=== PATIENT | male | born 1940 | race Caucasian/White ===

== ENCOUNTER 2017-03-29 12:12 | Emergency (ER) | payer MEDICARE ==
[~2017-03-29 12:12] MED LIST: ASPI-99 PO; ATOR40TA49 PO; CLIN1CAP5 PO; COUM5TAB PO; DOCU1CAP39 PO; FERR140T PO; FOLI1 PO; PRED5TAB PO; PROT40TA PO
[2017-03-29 12:20] VITALS: BP 132/65; PULSE 73; RESP 20; TEMP 97.6; O2SAT 97
--- NOTE | 2017-03-29 12:36 | PD ---
HPI Chief Complaint: Fall Time Seen by Provider: 12:31 Travel History International Travel<30 days: No Contact w/Intl Traveler<30days: No Traveled to known affect area: No History of Present Illness HPI 76-year-old male here with complaint of right knee swelling. Patient had a mechanical fall, slipping on an oil slick and a parking lot yesterday. He fell forward, landed on his hands and knees. He did not hit his head, denies LOC, neck or back pain. He notes pain to the bilateral knees, right greater than left. Is concerned because he is on Coumadin and this morning the knee was more swollen prompting his visit. He has been able to ambulate without any difficulty. He notes minimal to no pain. PFSH Past Medical History Hx Anticoagulant Therapy: Yes Asthma: No Atrial Fibrillation: Yes Blood Disorders: No Anxiety: No Depression: No Heart Rhythm Problems: No Cancer: No Cardiovascular Problems: Yes High Cholesterol: Yes Chemotherapy: No Chest Pain: No Congestive Heart Failure: No COPD: No Cerebrovascular Accident: No Diabetes: No Diminished Hearing: Yes (LEFT, HEARING AID RIGHT) Endocrine: No Genitourinary: No Immune Disorder: No Musculoskeletal: No Neurologic: No Psychiatric: No Reproductive: No Respiratory: No Immunizations Current: Yes (RECENT TETANUS SHOT) Pneumonia: Yes Radiation Therapy: No Sleep Apnea: Yes Thyroid Disease: No PNEUMOCCOCAL Vaccine (Year): 2010 Past Surgical History Abdominal Surgery: Yes (LEFT INGUINAL HERNIA REPAIR) Appendectomy: No Cholecystectomy: No Coronary Artery Bypass Graft: Yes Hysterectomy: No Other Surgery: Yes (CYST RIGHT NECK, PAROTID GLAND) Social History Alcohol Use: No Tobacco Use: No Substance Use: No Allergies-Medications (Allergen,Severity, Reaction): Coded Allergies: Ativan (Verified Allergy, Severe, 03/29/17) Bactrim (Verified Allergy, Severe, 03/29/17) Reported Meds & Prescriptions Reported Meds & Active Scripts Active Clindamycin Hcl (Clindamycin HCl) 150 Mg Cap 2 Tab PO Q8H 10 Days Reported Ferrous Sulfate 140 Mg Tab 65 Mg PO DAILY Coumadin 5 mg (Warfarin Sodium) Warfarin Sodium 5 mg Tab 0.5 Tab PO DIRECTED Sun, Tu, , Saturday Colace 100 Mg Cap (Docusate Sodium) 100 Mg Cap 300 Mg PO HS Aspirin 81 Mg Tab 81 Mg PO DAILY Protonix (Pantoprazole Sodium) 40 Mg Tab 40 Mg PO DAILY Prednisone 5 Mg Tab 0.5 Mg PO DAILY Folate 1 Mg Tab (Folic Acid) 1 Mg Tab 1 Mg PO DAILY Lipitor 40 Mg Tab (Atorvastatin Calcium) 40 Mg Tab 40 Mg PO HS Review of Systems Except as stated in HPI: all other systems reviewed are Neg Physical Exam Narrative GENERAL: Well-appearing male in no acute distress SKIN: Focused skin assessment warm/dry. HEAD: Normocephalic. EYES: No scleral icterus. No injection or drainage. ENT: Mucous membranes pink and moist. NECK: Supple CARDIOVASCULAR: Regular rate and rhythm. RESPIRATORY: No accessory muscle use. GASTROINTESTINAL: Obese MUSCULOSKELETAL: Bilateral upper extremities unremarkable. Left knee with small abrasion. Right knee with 4 x 3 cm abrasion with surrounding contusion and early ecchymosis. No tenderness to palpation of the joint line. Patient is able to flex well beyond 90 and fully extend the knee without any difficulty. NEUROLOGICAL: Awake and alert. Normal Gait. Normal speech. PSYCHIATRIC: Appropriate mood and affect; insight and judgment normal. Data Data Last Documented VS Vital Signs Date Time Temp Pulse Resp B/P Pulse Ox O2 Delivery O2 Flow Rate FiO2 03/29/17 12:20 97.6 73 20 132/65 97 MDM Medical Decision Making Medical Screen Exam Complete: Yes Emergency Medical Condition: Yes Medical Record Reviewed: Yes Differential Diagnosis 76-year-old male here with right knee pain after mechanical fall yesterday. Differential includes contusion, ligamentous injury or internal derangement, fracture, abrasion Narrative Course Patient is able to ablate without any difficulty and does not warrant imaging of the knee. Exam is consistent with abrasion with surrounding contusion no doubt made worse by his underlying Coumadin use. Patient was reassured, conservative management and discharged home. Diagnosis Primary Impression: Contusion of right knee Qualified Code: S80.01XA - Contusion of right knee, initial encounter Additional Impressions: Abrasion, right knee, initial encounter Fall Qualified Code: W19.XXXA - Fall, initial encounter Referrals: Primary Care Physician as needed Additional Instructions: Ice the knee 2-3 times per day. Med/Other Pt SpecificInfo: No Change to Meds Disposition: 01 DISCHARGE HOME Condition: Stable Belia Denise MD Mar 29, 2017 12:36
[2017-03-29] MEDS ORDERED: WARF-23 PO (12:51)
[2017-03-29] MEDS ORDERED: [UNRECOGNIZED DRUG - OTHER] (12:51)
[2017-03-29] MEDS ORDERED: PROT40TA PO (12:51)
[2017-03-29] MEDS ORDERED: ASPI-110 PO (12:51)
[2017-03-29] MEDS ORDERED: LIPI20TA PO (12:51)
[2017-03-29] MEDS ORDERED: SLOW47.5 PO (12:51)
[2017-03-29] MEDS ORDERED: LEVO25TA4 PO (12:51)
[2017-03-29] MEDS ORDERED: FOLI800T PO (12:51)
== END 2017-03-29 13:07 | disposition home or self-care (01) ==
LOC: PHED 12:12
DX: S80.01XA Contusion of right knee, initial encounter (principal); S80.211A Abrasion, right knee, initial encounter; M25.562 Pain in left knee; E78.00 Pure hypercholesterolemia, unspecified; H91.90 Unspecified hearing loss, unspecified ear; G47.30 Sleep apnea, unspecified; W01.0XXA Fall on same level from slipping, tripping and stumbling without subsequent striking against object, initial encounter; Y92.481 Parking lot as the place of occurrence of the external cause; Z79.01 Long term (current) use of anticoagulants; Z86.79 Personal history of other diseases of the circulatory system; Z87.01 Personal history of pneumonia (recurrent)
CPT/HCPCS: 99282

== ENCOUNTER 2017-05-21 20:28 | Emergency (ER) | payer MEDICARE ==
[~2017-05-21] VITALS: Ht 182.9 cm; Wt 114.4 kg
[~2017-05-21 20:28] MED LIST changes: +ASPI-110 PO; -ASPI-99 PO; -ATOR40TA49 PO; -CLIN1CAP5 PO; -COUM5TAB PO; -DOCU1CAP39 PO; -FERR140T PO; -FOLI1 PO; +FOLI800T PO; +LEVO25TA4 PO; +LIPI20TA PO; -PRED5TAB PO; +SLOW47.5 PO; +WARF-23 PO; +[UNRECOGNIZED DRUG - OTHER]
[2017-05-21 20:33] VITALS: BP 134/70; PULSE 91; RESP 20; TEMP 98.4; O2SAT 94
[2017-05-21] MEDS ORDERED: MUPI2OIN TOPICAL (21:00)
--- NOTE | 2017-05-21 21:08 | PD ---
HPI Chief Complaint: Skin Problem Time Seen by Provider: 20:56 Travel History International Travel<30 days: No Contact w/Intl Traveler<30days: No Traveled to known affect area: No History of Present Illness HPI 76-year-old male presents to the emergency room for evaluation of a painful blister to his right knee that started 2 days ago. Patient states he fell on concrete about one month ago and had a small abrasion that bled a lot. States it seemed to be improving and clearing up until blister formed. He reports mild tenderness to palpation. Patient was concerned because the redness around the blister seemed to be spreading. Denies fever, chills, nausea, and vomiting. PFSH Past Medical History Hx Anticoagulant Therapy: Yes (COUMADIN ) Asthma: No Atrial Fibrillation: Yes Blood Disorders: No Anxiety: No Depression: No Heart Rhythm Problems: No Cancer: No Cardiovascular Problems: Yes High Cholesterol: Yes Chemotherapy: No Chest Pain: No Congestive Heart Failure: No COPD: No Cerebrovascular Accident: No Diabetes: No Diminished Hearing: Yes (LEFT, HEARING AID RIGHT) Endocrine: No Genitourinary: No Immune Disorder: No Musculoskeletal: No Neurologic: No Psychiatric: No Reproductive: No Respiratory: No Immunizations Current: Yes (RECENT TETANUS SHOT) Pneumonia: Yes Radiation Therapy: No Sleep Apnea: Yes Thyroid Disease: No Tetanus Vaccination: > 5 Years Influenza Vaccination: No PNEUMOCCOCAL Vaccine (Year): 2010 Past Surgical History Abdominal Aneurysm Repair: Yes Abdominal Surgery: Yes (LEFT INGUINAL HERNIA REPAIR) Appendectomy: No Cholecystectomy: No Coronary Artery Bypass Graft: Yes Hysterectomy: No Valve Replacement: Yes Other Surgery: Yes (CYST RIGHT NECK, PAROTID GLAND) Social History Alcohol Use: No Tobacco Use: No Substance Use: No Allergies-Medications (Allergen,Severity, Reaction): Coded Allergies: lorazepam (Unverified Allergy, Severe, 05/21/17) sulfamethoxazole (Unverified Allergy, Severe, 05/21/17) trimethoprim (Unverified Allergy, Severe, 05/21/17) Reported Meds & Prescriptions Reported Meds & Active Scripts Active Reported [Eudra] Iron Slow Release (Ferrous Sulfate Dried) 45 Mg Tab 65 Mg PO DAILY Aspirin 81 (Aspirin) 81 Mg Tabdr 81 Mg PO DAILY Protonix (Pantoprazole Sodium) 40 Mg Tab 40 Mg PO DAILY Levothyroxine (Levothyroxine Sodium) 25 Mcg Tab 25 Mcg PO DAILY Folic Acid 800 Mcg Tab 800 Mcg PO DAILY Lipitor (Atorvastatin Calcium) 20 Mg Tab 20 Mg PO HS Warfarin 5 Mg Tab 5 Mg PO DIRECTED Review of Systems Except as stated in HPI: all other systems reviewed are Neg Physical Exam Narrative GENERAL: Well-nourished, well-developed male in no acute distress. Afebrile. Ambulatory. SKIN: Focused skin assessment warm/dry. There is a 2 cm yellow, fluid-filled blister to the right anterior knee with mild surrounding erythema. No lymphangitis. Blister is intact. HEAD: Normocephalic. EYES: No scleral icterus. No injection or drainage. NECK: Supple, trachea midline. No JVD or lymphadenopathy. CARDIOVASCULAR: Regular rate and rhythm without murmurs, gallops, or rubs. RESPIRATORY: Breath sounds equal bilaterally. No accessory muscle use. MUSCULOSKELETAL: No cyanosis, or edema. Full range of motion of the right knee. Data Data Last Documented VS Vital Signs Date Time Temp Pulse Resp B/P (MAP) Pulse Ox O2 Delivery O2 Flow Rate FiO2 05/21/17 20:33 98.4 91 20 134/70 (91) 94 MDM Medical Decision Making Medical Screen Exam Complete: Yes Emergency Medical Condition: Yes Medical Record Reviewed: Yes Differential Diagnosis Impetigo, staph aureus, blister, drug reaction, insect bite Narrative Course 76-year-old male presents to the emergency room for evaluation of a skin lesion to his right knee. Patient first noticed it 2 days ago. States he had an abrasion there one month ago after falling which seemed to be improving until a blister formed. Reports mild pain. He is concerned for infection because of the surrounding redness. No systemic signs of infection. Physical exam is reassuring. There is a 2 cm yellow fluid filled blister on the right anterior knee. No lymphangitis. This is bullous impetigo. Patient discharged with prescription for the mupirocin and told to follow up with a primary care physician or return for worsening symptoms. He understands and agrees to plan. Diagnosis Primary Impression: Bullous impetigo Referrals: Primary Care Physician Additional Instructions: Rest and drink plenty of fluids. Apply mupirocin as directed for 2 weeks. Apply ointment to new lesions if they develop nearby. Follow-up with a primary care physician. Return to the emergency room for worsening symptoms. Med/Other Pt SpecificInfo: Prescription(s) given Scripts Mupirocin Topical (Mupirocin Topical) 2 % Oint 1 APPLIC TOPICAL BID for Mgmt Bacterial Infection, #22 GM 0 Refills Prov: Kaleigh De La Garza MD 05/21/17 Disposition: 01 DISCHARGE HOME Condition: Stable Perri Lamb May 21, 2017 21:08
== END 2017-05-21 21:21 | disposition home or self-care (01) ==
LOC: PHEFT 20:28
DX: L01.03 Bullous impetigo (principal); W18.30XA Fall on same level, unspecified, initial encounter; Z79.01 Long term (current) use of anticoagulants
CPT/HCPCS: 99283

== ENCOUNTER 2018-10-24 08:00 | Inpatient (IN) ==
[2018-10-28] MEDS ORDERED: Metoprolol Tartrate 25 MG Tablet PO ONE (05:43)
[2018-10-28] MEDS ORDERED: Chlorhexidine Gluconate 2% 1 Pack (2 Cloths) TOPICAL ONE (05:43)
[2018-10-28] MEDS ORDERED: Sodium Chlor 0.9% Inj 500 ML IV.SIG SCH (06:00)
[2018-10-28] MEDS ORDERED: Protamine Sulfate Inj 50 MG/5 ML Vial ONE (06:30)
[2018-10-28] MEDS ORDERED: Bupivacaine PF 0.5% Inj 10 ML Vial ONE (06:30)
[2018-10-28] MEDS ORDERED: Heparin 10,000 UNITS/10 ML Vial (for IV use) ONE (06:30)
[2018-10-28] MEDS ORDERED: Heparin/NS PF Inj 500 ML ONE ×2 (06:31→11:19)
[2018-10-28] MEDS ORDERED: Thrombin Topical Soln 20,000 UNIT Vial TOPICAL ONE (06:31)
[2018-10-28] MEDS ORDERED: Dexmedetomidine Inj 200 MCG/2 ML Vial ONE (06:41)
[2018-10-28] MEDS ORDERED: Naloxone Inj 0.4 MG/ML Vial ONE ×3 (06:48→06:51)
[2018-10-28] MEDS ORDERED: Famotidine PF Inj 20 MG/2 ML Vial ONE (06:49)
--- NOTE | 2018-10-28 07:00 | P.PNVS ---
- Pre-operative Note Planned Procedure: LEFT carotid-subclavian bypass TEVAR Interval History: Pt has been doing well and has no chest pain, no SOB. No other changes that would preclude OR. Labs: pending. INR 1.3 yesterday Blood: T&S Imaging: CTA reviewed. Proximal and distal I endoleak after TEVAR. Orders: NPO Ancef 2g IV OCTOR Post-operative Destination: CVICU Operative site marked: Yes Consent: Informed consent has been obtained from Wes León. I have explained the procedure in detail and discussed the risks, benefits, and potential complications. All questions have been answered. Patient Contact Information: : [phone]
[2018-10-28 07:14] LABS: INR 1.2 Ratio; Prothrombin Time 11.8 sec (9.8-11.6)
[2018-10-28] MEDS ORDERED: fentaNYL Citrate Inj 100 MCG/2 ML Ampul ONE ×2 (07:30→13:34)
[2018-10-28] MEDS ORDERED: MethylPREDNISolone Sod Succinate Inj 125 MG/2 ML Vial ONE (07:49)
--- NOTE | 2018-10-28 08:14 | P.RAD ---
Post Procedure Progress Note - Pre Procedure Diagnosis (1) Thoracic aortic aneurysm - Post Procedure Diagnosis (1) Thoracic aortic aneurysm - Procedure Information Procedure Date: 10/28/18 Supervising Radiologist: Ramesh Vegas Jr, MD Proceduralist/Assist: Fito Haro Estimated blood loss (mL): 0 Anesthesia: Conscious Sedation - Plan of Activity Patient to Unit: PACU Patient Condition: Good See PACS Report for procedural detail/treatment. Spinal Procedure Lumbar Drain L4-L5 Fluid Description: Clear Findings: Lumbar drain placed. Clear CSF Plan: Vascular surgery to monitor drain.
[2018-10-28] MEDS ORDERED: Neostigmine Inj 5 MG/5 ML Syringe IV.PUSH ONE (08:20)
[2018-10-28] MEDS ORDERED: Lidocaine PF 1% Inj 5 ML Syringe OTHER ONE (08:20)
[2018-10-28] MEDS ORDERED: Sodium Chlor 0.9% Inj 500 ML IV.CONT ONE ×2 (08:20)
[2018-10-28] MEDS ORDERED: Glycopyrrolate Inj 1 MG/5 ML Syringe IV.PUSH ONE (08:20)
[2018-10-28] MEDS ORDERED: Phenylephrine/NS 1000 MCG/10ML Syringe IV.PUSH ONE (08:20)
[2018-10-28] MEDS ORDERED: Normosol-R pH 7.4 Inj 4,000 ML IV.CONT ONE (08:20)
--- NOTE | 2018-10-28 09:28 | IR ---
EXAM DATE: 10/28/2018 8:33 AM EST AGE/SEX: 77 years / Male INDICATIONS: Patient presents with endoleak in need of pre operative lumbar drain placement prior to thoracic stent repair. CLINICAL DATA: This is the patient's initial encounter. Patient reports that signs and symptoms have been present for 4 - 6 days and indicates a pain score of 0/10. Location: , Laterality: MEDICAL/SURGICAL HISTORY: . A fib, Dyslipidemia, History of right arm DVT. . AAA repair, CABG, Hernia repair, Mitral valve replaced. COMPARISON: No prior exams available for comparison. FLUORO TIME (min): 2:17 IMAGE SERIES: 4 RADIATION DOSE: 252 mGy CAK ACCESS SITE: L4-5 SEDATION TIME (min): 20 LUMBAR PUNCTURE TIME: 07:58 hours MEDICATION(S): 1 mg midazolam (Versed) IV 50 mcg fentanyl (Sublimaze) IV DEVICE(S): 14 Thai lumbar drain catheter catheter tip placement T8/T9 . . PROCEDURE: 1. Fluoroscopically guided lumbar drain placement. 2. Conscious sedation with continuous EKG and oximetry monitoring. The risks, benefits and alternatives to the procedure were explained and verbal and written consent w as obtained. The site was prepped in sterile fashion. Full sterile technique was used, including ca p, mask, sterile gloves and gown and a large sterile sheet. Hand hygiene and 2% chlorhexidine and/or betadine/alcohol prep was utilized per protocol for cutaneous antisepsis. The skin and subcutaneous tissues were infiltrated with local anesthetic solution. With fluoroscopic guidance the lumbar thecal sac was punctured with a 14 gauge Touhy needle and a lum bar drain was placed with its tip at the level as described above and the catheter was sutured in mat ce. CSF was identified returning from the catheter at the termination of the procedure. Conscious sedation was performed with the prescribed dosages and duration as above in the presence of an independent trained radiology nurse to assist in the monitoring of the patient. EKG and oximetry remained stable throughout the procedure. The patient tolerated the procedure well and there were n o complications. The patient was sent to post anesthesia recovery in stable condition. CONCLUSION: 1. Uncomplicated lumbar drain placement as above. Clear CSF noted. Electronically signed by: Ramesh Vegas MD Board Certified Radiologist 10/28/2018 9:26 AM EST
[2018-10-28] MEDS ORDERED: Iohexol 300 MG/ML 50 ML Vial (for Rad Diag) IVCONTRAST ONE (12:40)
--- NOTE | 2018-10-28 12:59 | P.OP ---
- Preoperative Diagnosis (1) Thoracic aortic aneurysm - Postoperative Diagnosis (1) Thoracic aortic aneurysm Date of procedure: 10/28/18 Procedure: 1. LEFT carotid-subclavian bypass (8mm Dacron) 2. TEVAR including L SCA coverage 3. Aptus lo of distal endograft (active fixation) 4. R NREMT perclose (22F) 5. L NREMT Angioseal Implants: 1. Valiant 46mm x 223 2. Valiant [id number] 3. Valiant [id number] 4. 8mm Dacron in L neck 5. Aptus lo x 6 distal aorta Anesthesia: GETA Surgeon: Pato Ross MD Final Finisher: Pato Bo Estimated blood loss (mL): 150 IV fluids (mL): 2,600 Urine output (mL): 500 Pathology: none sent Operation and Findings: successful relining from L CCA to celiac 160mL contrast 39 minutes fluoroscopy 5762mGy radiation
[2018-10-28] MEDS ORDERED: Bisacodyl 10 MG Supp RECTAL PRN (13:00)
[2018-10-28] MEDS ORDERED: Morphine Inj 4 MG/ML Vial IV.PUSH PRN (13:00)
[2018-10-28] MEDS ORDERED: DOPamine Inj 800 MG in Sodium Chlor 0.9% Inj 500 ML IV.CONT PRN (13:58)
[2018-10-28] MEDS ORDERED: DOPamine 400 MG/250 ML Premix 400 MG/250 ML BAG IV.CONT ONE (14:01)
--- NOTE | 2018-10-28 14:02 | XR ---
EXAM DATE: 10/28/2018 1:49 PM EST AGE/SEX: 77 years / Male INDICATIONS: Post central line placement and thoracic aneurysm repair. CLINICAL DATA: This is the patient's initial encounter. Patient reports that signs and symptoms have been present for 1 day and indicates a pain score of Nonresponsive. MEDICAL/SURGICAL HISTORY: . thoracic aneurysm . thoracic aneurysm repair COMPARISON: [facility] [place], CHEST 2V PA&LAT, 10/21/2018. . FINDINGS: Single view demonstrates again an aortic stent graft in place. There is mild pulmonary vascular conge stion. Right IJ central line in good position. No postoperative pneumothorax. The heart is enlarged. Overall better aeration left lung base. CONCLUSION: Tortuous aorta status post stent graft placement. Right IJ central venous catheter with its tip overl destin the SVC Electronically signed by: Nahid Rasmussen MD Board Certified Radiologist 10/28/2018 2:01 PM EST
--- NOTE | 2018-10-28 14:05 | P.CONCC ---
History of Present Illness Service: Critical care Consult date: 10/28/18 Requesting Physician: Pato Ross Reason for Consult: s/p TEVAR, bradycardia Primary Care Provider: Art Luna MD Chief Complaint: s/p TEVAR, bradycardia History of Present Illness: 77-year-old male with past medical history significant for atrial fibrillation, dyslipidemia, previous AAA repair, TEVAR 6 years ago, history of stroke, obesity, history of temporal arteritis and polymyalgia who underwent Left carotid-subclavian bypass and TEVAR including L SCA coverage with successful relining from left common carotid artery to celiac. Had previous TEVAR 6 years ago, developed proximal and distal I endoleak. Lumbar drain was placed for spinal cord injury prophylaxis. Post op patient was moved to the CVICU where I evaluated him. He is somnolent from procedural sedation. However wakes up moves all extremities. Currently receiving Carlitos-Synephrine at 40 mcg/min to keep map above 100. Lumbar drain in plac. Patient is also on Narcan infusion for SCI prophylaxis. On my evaluation patient intermittently bradycardic. Underlying rhythm is A. fib. Will change pressors to dopamine to target heart rate >60, map more than 100. Discuss[address] with [address] Ross. Review of Systems All other systems reviewed negative except as stated in HPI PMFSH - History History Provided By: Patient, Family Member - Medical History Medical History: Medical History (Last Reviewed 10/28/18 @ 14:06 by Jamal Hathaway MD) Atrial fibrillation High cholesterol Hx of Clostridium difficile infection Hx of blood clots Hx of varicose veins of lower extremity manager long term care (current) use of anticoagulants Lung nodule Polymyalgia Temporal arteritis Wears glasses Wears hearing aid in right ear - Surgical History Surgical History: Surgical History (Last Reviewed 10/28/18 @ 06:34 by Stacey Ware) History of AAA (abdominal aortic aneurysm) repair History of laser iridotomy Hx of cataract removal with insertion of prosthetic lens Hx of hand surgery Hx of hand surgery Hx of left inguinal hernia repair Hx of mitral valve replacement with cardiopulmonary bypass Hx of removal of neck cyst Hx of thoracic aortic aneurysm repair - Tobacco History Second Hand Smoke Exposure: No Tobacco Use In Past 30 Days: No Smoking Status: Never smoker - Alcohol History How Often Do You Have a Drink Containing Alcohol: Monthly or less - Substance Use History Substance History: No History of Abuse Medications and Allergies Active Medications: Active Medications Al Hydroxide/Mg Hydroxide (Milk Of Magnesia Liq) 30 ml PO Q12H PRN PRN Reason: Mild Constipation Aspirin (Aspirin Chew) 81 mg PO DAILY [facility] Atorvastatin Calcium (Lipitor) 20 mg PO QPM [facility] Bisacodyl (Dulcolax Supp) 10 mg RECTAL DAILY PRN PRN Reason: SEVERE CONSITIPATION Famotidine (Pepcid) 20 mg PO BID [facility] Ferrous Sulfate (Ferosul) 325 mg PO DAILY [facility] Folic Acid (Folic Acid) 1 mg PO DAILY [facility] Heparin Sodium (Porcine) (Heparin Inj) 5,000 units SQ Q8H [facility] Hydromorphone HCl (Dilaudid) 2 mg PO Q4H PRN PRN Reason: PAIN SCALE 6 TO 10 Lactated Ringer's (Lr 1000 Ml Inj) 1,000 mls @ 30 mls/hr IV.SIG .Q24H [facility] Stop: 10/29/18 05:44 Last Admin: 10/28/18 06:30 Dose: 30 mls/hr Sodium Chloride (Ns Inj) 500 mls @ 30 mls/hr IV.SIG .Q10H [facility] Lactated Ringer's (Lr 1000 Ml Inj) 1,000 mls @ 63 mls/hr IV.CONT .[id number] [facility] Naloxone HCl 4 mg/ Dextrose 250 mls @ 12.5 mls/hr IV.CONT TITRATE PRN; Protocol PRN Reason: Ordered RASS Phenylephrine HCl 40 mg/ (Dextrose) 500 mls @ 18.75 mls/hr IV.CONT TITRATE PRN ; Protocol PRN Reason: Per Protocol Dopamine HCl 800 mg/ Sodium (Chloride) 520 mls @ 13.85 mls/hr IV.CONT TITRATE PRN; Protocol PRN Reason: See Protocol Lactulose (Lactulose Liq) 30 ml PO DAILY PRN PRN Reason: SEVERE CONSITIPATION Levothyroxine Sodium (Synthroid) 25 mcg PO DAILY@0600 [facility] Midazolam HCl (Versed Inj) 1 mg IV.PUSH ONCE ONE Stop: 10/28/18 08:17 Morphine Sulfate (Morphine Inj) 2 mg IV.PUSH Q1H PRN PRN Reason: BREAKTHROUGH PAIN Multivitamins (Theragran) 1 tab PO DAILY [facility] Oxycodone HCl (Roxicodone) 5 mg PO Q4H PRN PRN Reason: PAIN SCALE 1 TO 5 Senna/Docusate Sodium (Annika-Colace) 1 tab PO BID [facility] Sennosides (Senokot) 17.2 mg PO Q12H PRN PRN Reason: Moderate Constipation Sennosides (Senokot) 17.2 mg PO HS [facility] Terbutaline Sulfate (Brethine Inj) 1 mg SQ UNSCH PRN PRN Reason: For Extravasation Terbutaline Sulfate (Brethine Inj) 1 mg SQ ONCE PRN PRN Reason: Extravasation Allergies Allergy/AdvReac Type Severity Reaction Status Date / Time lorazepam Allergy Severe Agitation, Verified 10/28/18 06:27 WILD, GOOFY sulfamethoxazole Allergy Severe Nausea/Vomiting, Verified 10/28/18 06:27 DIORIENTATION trimethoprim Allergy Severe Nausea/Vomiting, Verified 10/28/18 06:27 DISORIENTATION Home Medications Medication Instructions Recorded Confirmed Type aspirin [Adult Low Dose Aspirin] 81 mg PO DAILY 10/21/18 10/28/18 History atorvastatin 20 mg PO QPM 10/21/18 10/28/18 History ferrous sulfate 324 mg PO DAILY 10/21/18 10/28/18 History folic acid 0.8 mg PO DAILY 10/21/18 10/28/18 History levothyroxine 25 mcg PO DAILY 10/21/18 10/28/18 History whxblztk-hmd-RZ-lycopen-lutein 1 tab PO DAILY 10/21/18 10/28/18 History [Centrum Silver Ultra Men's] pantoprazole 40 mg PO DAILY 10/21/18 10/28/18 History sennosides [senna] 2 tab PO HS 10/21/18 10/28/18 History warfarin [Coumadin] 5 mg PO DAILY 10/21/18 10/28/18 History warfarin [Coumadin] 7.5 mg PO DAILY 10/21/18 10/28/18 History Physical Exam Vital signs: Vital Signs 10/28/18 06:36 Temperature 98.0 F Pulse Rate 68 Respiratory Rate 18 Blood Pressure 142/76 H Pulse Oximetry 94 L Intake & Output 10/27/18 10/28/18 10/28/18 18:59 06:59 18:59 Intake Total 2600 / 2600 Output Total 650 / 650 Balance 1950 / 1950 Weight 118.4 kg Intake: Anesthesia Amount 2600 / 2600 Output: Estimated Blood Loss 150 / 150 Urine Amount (Catheter) 500 / 500 Indwelling Temp Sensing 500 / 500 Catheter Other: Weight On Admission 118.4 kg Narrative: GENERAL: This is a well-nourished, well-developed patient, somnolent from anesthesia SKIN: No rashes, ecchymoses or lesions. Cool and dry. HEAD: Atraumatic. Normocephalic. EYES: Pupils equal round and reactive. No scleral icterus. NECK: Trachea midline. Right IJ central line in place. Left lower neck neck incision CDI, Dermabond in place CARDIOVASCULAR: Bradycardic rate and rhythm without murmurs, gallops, or rubs. Underlying atrial fibrillation with slow ventricular rate RESPIRATORY: Clear to auscultation. No wheezes or crackles GASTROINTESTINAL: Abdomen soft, non-tender, nondistended. No guarding. MUSCULOSKELETAL: Extremities without clubbing, cyanosis, or edema. No calf tenderness. Peripheral pulses are palpable. No groin hematoma at the puncture sites BACK: Lumbar drain in place with clear CSF NEUROLOGICAL: Under residual sedation. Receiving Narcan infusion for spinal cord injury prophylaxis. Lumbar drain in place. Able to move extremities follows commands - Urinary Catheter Management Indwelling Temp Sensing Catheter Cath placed during this visit: yes Reason for continuing: Hourly intake/output Insertion date: 10/28/18 Insertion time: 08:45 Septic Shock Reassessment Septic shock perfusion: reassessment completed Assessment and Plan - Assessment and Plan Plan: ASSESSMENT TEVAR and Left carotid-subclavian bypass Previous TEVAR developed proximal and distal endoleak SCI prophylaxis History of AAA repair History of CVA in the past History of polymyalgia rheumatica Chronic atrial fibrillation Dyslipidemia Obesity PLAN: NEURO: -Close neuro monitoring no focal deficits at this time -Lumbar drain placed for spinal cord injury prophylaxis, maintain map more than 100 for 24 hours -Not monitoring DELIVERY ARCHITECT perfusion pressures -Narcan infusion for spinal cord injury prophylaxis -Fentanyl for pain control RESP: -DuoNeb every 2 hours as needed CV: -Maintenance LR per vascular surgery -Chronic atrial fibrillation with intermittent bradycardia -Currently on Carlitos-Synephrine transition to dopamine to keep map above 100 and heart rate more than 60 -Check troponin lactic acid to guide resuscitation -Resume aspirin in 24-hour, continue Lipitor GI: -Diet per Dr. Ross : -Monitor renal function closely. Ordonez catheter for strict intake output ID: -Perioperative antibiotics per Dr. Ross HEME: -Monitor CBC, coags ENDO: -Electrolyte replacement per protocol PROPH: -SQ Heparin/famotidine LINES: -Utilize peripheral IVs, central line art line in place CC time 38 min Code Status: Full Discussed Condition With: Dr. Ross
[2018-10-28] MEDS ORDERED: Phenylephrine Inj 40 MG in Dextrose 5% in Water Inj 496 ML IV.CONT PRN ×2 (14:30)
[2018-10-28 14:39] LABS: Hematocrit 31.6 % (39.0-51.0); Hemoglobin 10.2 gm/dL (13.0-17.0); Mean Corpuscular HGB Conc 32.3 % (32.0-36.0); Mean Corpuscular Volume 80.7 fL (80.0-100.0); Mean Platelet Volume 7.2 fL (7.0-11.0); Platelet Count 168 th/mm3 (150-450); Red Blood Count 3.92 mil/mm3 (4.50-5.90); Red Cell Distribution Width 15.9 % (11.6-17.2); White Blood Count 8.2 th/mm3 (4.0-11.0)
[2018-10-28] MEDS ORDERED: fentaNYL Citrate Inj 100 MCG/2 ML Ampul IV.PUSH PRN (14:47)
[2018-10-28 14:48] LABS: Alanine Aminotransferase 32 U/L (12-78); Albumin 3.1 g/dL (3.4-5.0); Anion Gap 8 meq/L (5-15); Aspartate Aminotransferase 21 U/L (15-37); Blood Urea Nitrogen 16 mg/dL (7-18); Calcium 8.1 mg/dL (8.5-10.1); Carbon Dioxide 25.1 meq/L (21.0-32.0); Chloride 108 meq/L (98-107); Glomerular Filtration Rate 86 mL/min (>89); Glucose,Random 135 mg/dL (74-106); Potassium 3.8 meq/L (3.5-5.1); Sodium 141 meq/L (136-145)
[2018-10-28 14:50] LABS: Alkaline Phosphatase 116 U/L (45-117); Total Protein 7.5 g/dL (6.4-8.2)
[2018-10-28] MEDS: Famotidine 20 MG Tablet PO SCH (21:36)
[2018-10-28] MEDS: Senna/Docusate Sodium 8.6/50 MG Tablet PO SCH (21:37)
--- NOTE | 2018-10-28 23:48 | MP ---
cc: Pato Ross MD DATE OF OPERATION: 10/28/2018 PREOPERATIVE DIAGNOSIS: Thoracic aneurysm. POSTOPERATIVE DIAGNOSIS: Thoracic aneurysm. PROCEDURE PERFORMED: 1. Left carotid subclavian bypass with 8 mm Dacron. 2. Proximal extension of the previously placed TEVAR. 3. Distal extension of the previously placed TEVAR. 4. Aptus fixation device of distal aspect of the TEVAR. 5. Right common femoral artery Perclose (22F). 6. Left common femoral artery Angio-Seal. ATTENDING SURGEON: Pato Ross MD REGIONAL GEODETIC ADVISOR SURGEON: Pato Bo ANESTHESIA: General. INDICATIONS: Mr. León is a 77-year-old gentleman who has a previous thoracic endovascular aortic stent for a thoracic aneurysm. On routine surveillance, he was noted to have a proximal degeneration as well as distal degeneration of the thoracic aorta and he was offered an endovascular mediation. He required a proximal extension as well as a distal extension and because a proximal extension intentionally covered the left subclavian artery, a carotid subclavian bypass was performed preemptively. DESCRIPTION OF PROCEDURE: Informed consent was obtained. The patient was taken to the operating room and placed supine on the operating table. An appropriate timeout was taken to ensure the patient's identity, operative site and planned procedure. The administration of 2 grams of Ancef was initiated prior to the spinal drain insertion, which was done in radiology. Everyone in the room agreed with timeout and we proceeded. He was prepped from his chin to his knees. An incision was made above the left clavicle, carried down through subcutaneous tissue with electrocautery. The platysma was divided with electrocautery. The lateral aspect of the sternocleidomastoid was divided and the scalene fat pad was mobilized. The anterior scalene muscle was identified and transected laterally, thereby exposing the subclavian artery, which was encircled with a vessel loop. The sternocleidomastoid was mobilized and the jugular vein was completely circumferentially mobilized and dissected free, and the common carotid artery was identified and encircled with a vessel loop. A tunnel was then created underneath the jugular for passage of the graft. The neck wound was temporarily packed as we gained access in the groins. Both common femoral arteries were accessed with the 21-gauge micropuncture needle. This was exchanged using Seldinger technique for a micropuncture sheath through which a 0.05 STORQ wire was introduced. The micropuncture sheath was exchanged for a 5-Pakistani sheath on the left and an 8-Pakistani sheath on the right. Prior to placing the 8-Pakistani sheath on the right, two Perclose ProGlide sutures were inserted and tagged but not tied down. These will be used later. The patient was then systemically heparinized and throughout the remainder of the case, the ACT was kept greater than 250. Proximal and distal control of the subclavian artery was obtained with profunda clamps and a longitudinal arteriotomy was made with an 11 blade, extended with Mayur scissors. An 8 mm Dacron was brought up on the field, spatulated and sewn end-to-side with running 5-0 Prolene suture. At the completion, it was flushed and was hemostatic. The clamps were released and a Gordon Soft jaw was placed in the graft. The graft was tunneled underneath the jugular vein with pharmacological augmentation of the blood pressure, proximal and distal control of the common carotid artery was obtained with profunda clamps, and a longitudinal arteriotomy was made with an #11 blade, extended with Merom scissors. The graft was cut to the appropriate length and sewn end-to-side to the common carotid artery with a running 5-0 Prolene suture. At the completion, it was flushed and noted to be hemostatic. The wound was packed temporarily. We then turned our attention towards the TEVAR. Through both groins, the 8-Pakistani on the right and the 5-Pakistani on the left, STORQ wires were advanced to the ascending aorta through the previous T-bar graft. The right hand STORQ wire was exchanged for a Lunderquist using a catheter and over the left hand STORQ wire, a marker flush pigtail catheter was placed into the ascending aorta. The 8-Pakistani sheath on the right was removed and Jos dilator was used to dilate the skin and subcutaneous tracts and arteriotomy up to the main device, which was a Valiant 46 x 200 through a 22-Pakistani sheath, which was introduced through the dilated right common femoral arteriotomy. The device was advanced to the ascending aorta and then withdrawn. The interval angiogram was performed and the device was deployed without difficulty such that the proximal aspect of the fabric was immediately distal to the left common carotid artery. The delivery system was then removed, and an 18-Pakistani Sentrant sheath was introduced and a Reliant balloon was used to balloon the proximal and distal ends of this graft. We then turned our attention towards the distal aspect. The pigtail catheter was backed down to the distal aspect of the graft. An angiogram was obtained. The 18-Pakistani sheath was removed and a 46 x 175 device was then introduced and deployed, but it buckled during deployment. As such, it was deployed to the distal aspect of the graft was within proximal celiac and a second device was deployed inside this and a Reliant balloon was used to balloon the entire thoracic stent. A completion angiogram of both the top and the bottom aspect showed excellent result without any obvious endoleaks. The 22-Pakistani delivery system was removed. An 8-Pakistani sheath was reintroduced to the right hand side and the Aptus endovascular stapling system was then brought up onto the field, inserted, retroflexed and flexed, several Aptus lo were applied to the distal aspect to provide active fixation of the endograft. The wire, catheter, and sheath were removed from the right side and the Perclose tied down. Hemostasis was achieved in the groin. There was a nice Doppler signal in the foot. Through the left hand side, the 5-Pakistani sheath was removed and the groin was closed with an Angio-Seal. A 21-gauge micropuncture needle was used to access the distal aspect of the carotid subclavian graft and we navigated down into the proximal subclavian artery, but coils would not coil appropriately into the proximal subclavian artery without emanating into the aorta and decision to coil was then abandoned. The sheath was removed from the graft and the graftotomy was oversewn with 6-0 Prolene suture. The wound was made hemostatic. Heparin reversed with protamine. The neck wound was closed with 2-0 Polysorb, 3-0 Polysorb and 4-0 Monocryl. The sponge and needle counts were correct at the end of the case. I was present and scrubbed for the entire procedure. At the end of the case, the patient was transported to the cardiovascular ICU in stable condition, neurologically intact and extubated. MD CHAPINCITO Antunez/maria esther/koby , 08:27 PM , 08:38 PM [place]
[2018-10-29 05:00] LABS: Hematocrit 32.7 % (39.0-51.0); Hemoglobin 10.6 gm/dL (13.0-17.0); Mean Corpuscular HGB Conc 32.3 % (32.0-36.0); Mean Corpuscular Hemoglobin 25.5 pg (27.0-34.0); Mean Corpuscular Volume 78.9 fL (80.0-100.0); Mean Platelet Volume 6.8 fL (7.0-11.0); Platelet Count 174 th/mm3 (150-450); Red Blood Count 4.15 mil/mm3 (4.50-5.90); Red Cell Distribution Width 16.1 % (11.6-17.2); White Blood Count 12.8 th/mm3 (4.0-11.0)
[2018-10-29 05:23] LABS: Anion Gap 7 meq/L (5-15); Blood Urea Nitrogen 18 mg/dL (7-18); Calcium 8.8 mg/dL (8.5-10.1); Carbon Dioxide 26.5 meq/L (21.0-32.0); Chloride 107 meq/L (98-107); Glomerular Filtration Rate Greater Than 89 mL/min (>89); Glucose,Random 124 mg/dL (74-106); Sodium 140 meq/L (136-145)
[2018-10-29] MEDS ORDERED: DOPamine 400 MG/250 ML Premix 400 MG/250 ML BAG IV.CONT ONE (05:59)
--- NOTE | 2018-10-29 06:52 | P.PNVS ---
Subjective Post Op Day #: 1 Procedure: L C-SC, TEVAR Subjective/Hospital Course: neuro intact nauseated with bradycardic episodes no CP UOP ok on Dopamine to pharmacologically elevate BP for spinal cord protection Objective Vital Signs / I&O: Vital Signs 10/28/18 13:10 10/28/18 13:15 10/28/18 13:30 Temperature 94.8 F L Pulse Rate 62 63 59 L Respiratory Rate 12 Blood Pressure 136/60 134/70 137/62 Pulse Oximetry 96 10/28/18 13:45 10/28/18 14:00 10/28/18 15:00 Temperature 95.2 F L Pulse Rate 66 54 L 56 L Respiratory Rate 12 12 Blood Pressure 126/80 155/78 H 162/75 H Pulse Oximetry 96 99 10/28/18 16:00 10/28/18 17:00 10/28/18 17:28 Temperature 95.4 F L 96 F L Pulse Rate 60 69 Respiratory Rate 13 15 Blood Pressure 160/78 H 144/63 H Pulse Oximetry 93 L 91 L 95 10/28/18 17:30 10/28/18 18:00 10/28/18 19:00 Temperature 96.2 F L 96.5 F L Pulse Rate 68 66 Respiratory Rate 16 16 18 Blood Pressure 151/85 H 148/74 H Pulse Oximetry 93 L 94 L 10/28/18 20:00 10/28/18 21:00 10/28/18 22:00 Temperature 96.9 F L 97.2 F L 97.2 F L Pulse Rate 67 68 67 Respiratory Rate 18 18 16 Blood Pressure 155/79 H 155/82 H 149/83 H Pulse Oximetry 93 L 95 92 L 10/28/18 22:18 10/28/18 23:00 10/28/18 23:35 Temperature 97.4 F L Pulse Rate 75 70 Respiratory Rate 20 Blood Pressure 120/87 Pulse Oximetry 94 L 95 10/29/18 00:00 10/29/18 01:00 10/29/18 02:00 Temperature 97.7 F 97.9 F 97.9 F Pulse Rate 69 68 68 Respiratory Rate 16 18 20 Blood Pressure 153/77 H 135/75 147/48 H Pulse Oximetry 95 96 92 L 10/29/18 03:00 10/29/18 03:15 10/29/18 04:00 Temperature 98 F 98 F Pulse Rate 80 79 73 Respiratory Rate 20 20 Blood Pressure 141/88 H 144/84 H Pulse Oximetry 96 94 L 10/29/18 05:00 10/29/18 06:00 Temperature 98.3 F 98.3 F Pulse Rate 74 73 Respiratory Rate 18 18 Blood Pressure 151/80 H 145/84 H Pulse Oximetry 95 94 L Intake & Output 10/28/18 10/28/18 10/29/18 06:59 18:59 06:59 Intake Total 3139 / 3139 1644 / 1644 Output Total 1453 / 1453 1349 / 1349 Balance 1686 / 1686 295 / 295 Weight 118.4 kg 119 kg Intake: IV 539 / 539 1044 / 1044 Intropin 400 MG/250 ML Premix 50 / 50 400 mg In 250 ml @ 0 mls/hr IV. CONT .STK-MED ONE Rx#:[id number] LR 1000 mL Inj 1,000 ML @ 63 245 / 245 755 / 755 mls/hr IV.CONT .[id number] [facility] Rx# :[id number] Narcan Inj 4 MG In D5W Inj 246 67 / 67 89 / 89 ML @ 0.118 MG/HR 7.37 mls/hr IV .CONT TITRATE PRN Rx#:[id number] Neosynephrine Inj 40 MG In D5W 177 / 177 Inj 496 ML @ 25 MCG/MIN 18.75 mls/hr IV.CONT TITRATE PRN Rx#: [id number] Oral 600 / 600 Anesthesia Amount 2600 / 2600 Output: Estimated Blood Loss 150 / 150 Urine Amount (Catheter) 1250 / 1250 1260 / 1260 Indwelling Temp Sensing 1250 / 1250 1260 / 1260 Catheter Wound Drainage 53 / # 1 Lower Posterior Back Lumbar 53 / 53 Other: Weight On Admission 118.4 kg Exam: alert, PLASENCIA L neck ecchymotic but soft palpable pedal and radial pulses neuro intact Laboratory Results - last 24 hr 10/28/18 10/28/18 10/28/18 06:30 06:30 11:40 WBC RBC Hgb Hct MCV MCH MCHC RDW Plt Count MPV PT 11.8 H D INR 1.2 Sodium Potassium Chloride Carbon Dioxide Anion Gap BUN Creatinine Estimated GFR Random Glucose Lactic Acid Calcium Magnesium Total Bilirubin AST ALT Alkaline Phosphatase Troponin I Total Protein Albumin Blood Type A Positive Blood Type Recheck Required Antibody Screen Negative MTS Gel Crossmatch See Detail 10/28/18 10/28/18 10/28/18 14:06 14:06 14:06 WBC 8.2 RBC 3.92 L Hgb 10.2 L Hct 31.6 L MCV 80.7 MCH 26.0 L MCHC 32.3 RDW 15.9 Plt Count 168 MPV 7.2 PT INR Sodium 141 Potassium 3.8 Chloride 108 H Carbon Dioxide 25.1 Anion Gap 8 BUN 16 Creatinine 0.86 Estimated GFR 86 L Random Glucose 135 H Lactic Acid 1.4 Calcium 8.1 L Magnesium 2.0 Total Bilirubin 1.0 AST 21 ALT 32 Alkaline Phosphatase 116 Troponin I Total Protein 7.5 Albumin 3.1 L Blood Type Blood Type Recheck Antibody Screen MTS Gel Crossmatch 10/28/18 10/29/18 10/29/18 14:06 04:40 04:40 WBC 12.8 H D RBC 4.15 L Hgb 10.6 L Hct 32.7 L MCV 78.9 L MCH 25.5 L MCHC 32.3 RDW 16.1 Plt Count 174 MPV 6.8 L PT INR Sodium 140 Potassium 4.0 Chloride 107 Carbon Dioxide 26.5 Anion Gap 7 BUN 18 Creatinine 0.80 Estimated GFR Greater than 89 Random Glucose 124 H Lactic Acid Calcium 8.8 Magnesium Total Bilirubin AST ALT Alkaline Phosphatase Troponin I 0.02 Total Protein Albumin Blood Type Blood Type Recheck Antibody Screen MTS Gel Crossmatch Assessment and Plan - Assessment (1) Thoracic aortic aneurysm Code(s): I71.2 - Thoracic aortic aneurysm, without rupture Status: Acute - Plan POD#1 s/p L C-SC/TEVAR 1. MAP 90mmHg; continue MIVF and dopamine 2. continue neuro checks 3. clamp spinal drain at noon if remains neuro intact 4. cardiology consult for intermittent bradycardia 5. cardiac diet 6. will resume anticoagulation after drain out Discharge Planning: likely out of ICU tomorrow or Saturday
--- NOTE | 2018-10-29 07:18 | P.PNCC ---
Subjective Subjective Remarks/Hospital Course: 77-year-old male with past medical history significant for atrial fibrillation, dyslipidemia, previous AAA repair, TEVAR 6 years ago, history of stroke, obesity, history of temporal arteritis and polymyalgia who underwent Left carotid-subclavian bypass and TEVAR including L SCA coverage with successful relining from left common carotid artery to celiac. Had previous TEVAR 6 years ago, developed proximal and distal I endoleak. Lumbar drain was placed for spinal cord injury prophylaxis. Post op patient was moved to the CVICU where I evaluated him. He is somnolent from procedural sedation. However wakes up moves all extremities. Currently receiving Carlitos-Synephrine at 40 mcg/min to keep map above 100. Lumbar drain in plac. Patient is also on Narcan infusion for SCI prophylaxis. On my evaluation patient intermittently bradycardic. Underlying rhythm is A. fib. Will change pressors to dopamine to target heart rate >60, map more than 100. Discussed with Dr[address] Ross. SUBJ 10/29: Patient remains neuro intact. Currently on dopamine to maintain map lumbar drain in place. Neurologically intact. Intermittently bradycardic to 30s with nausea/vomiting. Cardiology Dr. Slaughter consult requested Objective Vital Signs / I&O: Vital Signs 10/28/18 13:10 10/28/18 13:15 10/28/18 13:30 Temperature 94.8 F L Pulse Rate 62 63 59 L Respiratory Rate 12 Blood Pressure 136/60 134/70 137/62 Pulse Oximetry 96 10/28/18 13:45 10/28/18 14:00 10/28/18 15:00 Temperature 95.2 F L Pulse Rate 66 54 L 56 L Respiratory Rate 12 12 Blood Pressure 126/80 155/78 H 162/75 H Pulse Oximetry 96 99 10/28/18 16:00 10/28/18 17:00 10/28/18 17:28 Temperature 95.4 F L 96 F L Pulse Rate 60 69 Respiratory Rate 13 15 Blood Pressure 160/78 H 144/63 H Pulse Oximetry 93 L 91 L 95 10/28/18 17:30 10/28/18 18:00 10/28/18 19:00 Temperature 96.2 F L 96.5 F L Pulse Rate 68 66 Respiratory Rate 16 16 18 Blood Pressure 151/85 H 148/74 H Pulse Oximetry 93 L 94 L 10/28/18 20:00 10/28/18 21:00 10/28/18 22:00 Temperature 96.9 F L 97.2 F L 97.2 F L Pulse Rate 67 68 67 Respiratory Rate 18 18 16 Blood Pressure 155/79 H 155/82 H 149/83 H Pulse Oximetry 93 L 95 92 L 10/28/18 22:18 10/28/18 23:00 10/28/18 23:35 Temperature 97.4 F L Pulse Rate 75 70 Respiratory Rate 20 Blood Pressure 120/87 Pulse Oximetry 94 L 95 10/29/18 00:00 10/29/18 01:00 10/29/18 02:00 Temperature 97.7 F 97.9 F 97.9 F Pulse Rate 69 68 68 Respiratory Rate 16 18 20 Blood Pressure 153/77 H 135/75 147/48 H Pulse Oximetry 95 96 92 L 10/29/18 03:00 10/29/18 03:15 10/29/18 04:00 Temperature 98 F 98 F Pulse Rate 80 79 73 Respiratory Rate 20 20 Blood Pressure 141/88 H 144/84 H Pulse Oximetry 96 94 L 10/29/18 05:00 10/29/18 06:00 10/29/18 07:00 Temperature 98.3 F 98.3 F Pulse Rate 74 73 75 Respiratory Rate 18 18 Blood Pressure 151/80 H 145/84 H Pulse Oximetry 95 94 L Intake & Output 10/28/18 10/29/18 10/29/18 18:59 06:59 18:59 Intake Total 3139 / 3139 1644 / 1644 Output Total 1453 / 1453 1349 / 1349 Balance 1686 / 1686 295 / 295 Weight 119 kg Intake: IV 539 / 539 1044 / 1044 Intropin 400 MG/250 ML Premix 50 / 50 400 mg In 250 ml @ 0 mls/hr IV. CONT .STK-MED ONE Rx#:[id number] LR 1000 mL Inj 1,000 ML @ 63 245 / 245 755 / 755 mls/hr [id number] Rx# :[id number] Narcan Inj 4 MG In D5W Inj 246 67 / 67 89 / 89 ML @ 0.118 MG/HR 7.37 mls/hr IV .CONT TITRATE PRN Rx#:[id number] Neosynephrine Inj 40 MG In D5W 177 / 177 Inj 496 ML @ 25 MCG/MIN 18.75 mls/hr IV.CONT TITRATE PRN Rx#: [id number] Oral 600 / 600 Anesthesia Amount 2600 / 2600 Output: Estimated Blood Loss 150 / 150 Urine Amount (Catheter) 1250 / 1250 1260 / 1260 Indwelling Temp Sensing 1250 / 1250 1260 / 1260 Catheter Wound Drainage # 1 Lower Posterior Back Lumbar Result Diagrams: 10/29/18 04:40 10/29/18 04:40 Objective Remarks: GENERAL: This is a well-nourished, well-developed patient, alert awake SKIN: No rashes, ecchymoses or lesions. Cool and dry. HEAD: Atraumatic. Normocephalic. Left facial droop which is old EYES: Pupils equal round and reactive. No scleral icterus. NECK: Trachea midline. Right IJ central line in place. Left lower neck neck incision CDI, Dermabond in place CARDIOVASCULAR: Intermittently bradycardic rate and rhythm without murmurs, gallops, or rubs. Underlying atrial fibrillation with slow ventricular rate RESPIRATORY: Clear to auscultation. No wheezes or crackles GASTROINTESTINAL: Abdomen soft, non-tender, nondistended. No guarding. MUSCULOSKELETAL: Peripheral pulses palp. No calf tenderness. Peripheral pulses are palpable. No groin hematoma at the puncture sites BACK: Lumbar drain in place with clear CSF NEUROLOGICAL: Alert awake oriented, left facial drop is chronic from previous CVA. Receiving Narcan infusion for spinal cord injury prophylaxis. Lumbar drain in place. Able to move extremities follows commands. No new focal deficits Assessment and Plan - Assessment and Plan Plan: ASSESSMENT TEVAR and Left carotid-subclavian bypass Previous TEVAR developed proximal and distal endoleak SCI prophylaxis Symptomatic bradycardia History of AAA repair History of CVA in the past History of polymyalgia rheumatica Chronic atrial fibrillation Dyslipidemia Obesity PLAN: NEURO: -Close neuro monitoring no focal deficits at this time -Lumbar drain placed for spinal cord injury prophylaxis, maintain map more than 100 for 24 hours -Narcan infusion for spinal cord injury prophylaxis -Fentanyl for pain control RESP: -DuoNeb every 2 hours as needed CV: -Maintenance LR per vascular surgery -Chronic atrial fibrillation with intermittent bradycardia -Consult to patient's piling cutter Dr. Slaughter -Currently on dopamine to keep map above 100 and heart rate more than 60 -Normal troponin lactic acid -Resume aspirin today, continue Lipitor GI: -Diet per Dr. Ross : -Monitor renal function closely. Ordonez catheter for strict intake output ID: -Perioperative antibiotics per Dr. Ross HEME: -Monitor CBC, coags ENDO: -Electrolyte replacement per protocol PROPH: -SQ Heparin/famotidine LINES: -Utilize peripheral IVs, central line art line in place Level 3 Continue ICU care due to lumbar drain and symptomatic bradycardia. Await cardiology input
[2018-10-29] MEDS: Folic Acid 1 MG Tablet PO SCH (09:01)
[2018-10-29] MEDS: Ferrous Sulfate 325 MG Tablet PO SCH (09:01)
[2018-10-29] MEDS: Famotidine 20 MG Tablet PO SCH ×2 (09:02→21:36)
[2018-10-29] MEDS: Senna/Docusate Sodium 8.6/50 MG Tablet PO SCH ×2 (09:02→21:37)
--- NOTE | 2018-10-29 10:22 | P.CONCA ---
History of Present Illness Service: Cardiology Consult date: 10/29/18 Requesting Physician: Jamal Hathaway Reason for Consult: Symptomatic bradycardia Primary Care Provider: Art Luna MD Chief Complaint: s/p TEVAR, bradycardia History of Present Illness: Pleasant 77 year old male well known to our practice. With a significant past cardiac history of double valve replacement and bypass surgery December 2012 at [facility], ascending and descending aortic aneurysm repairs, atrial fib, atrial flutter on Coumadin, CVA, hypertension, and anemia. Patient underwent left carotidsubclavian bypass and TEVAR including L SCA coverage with successful relining from the left common carotid artery to celiac. His previous TEVAR that was completed 6 years ago developed a proximal and distal endoleak. Patient had lumbar drain placed for spinal cord injury prophylaxis. Postop he developed intermittent symptomatic bradycardia. He continues on dopamine with parameters in place upon exam today patient appears to be doing well he denies any cardiac complaints, neurologically intact. Telemetry reveals atrial fibrillation heart rate in the 80s and 90s, last bradycardic episode was last night, no bradycardia noted today. We will continue to follow closely. Review of Systems All other systems reviewed negative except as stated in HPI PMFSH - History History Provided By: Patient, Family Member - Medical History Medical History: Medical History (Last Reviewed 10/28/18 @ 14:06 by Jamal Hathaway MD) Atrial fibrillation High cholesterol Hx of Clostridium difficile infection Hx of blood clots Hx of varicose veins of lower extremity group home (current) use of anticoagulants Lung nodule Polymyalgia Temporal arteritis Wears glasses Wears hearing aid in right ear - Surgical History Surgical History: Surgical History (Last Reviewed 10/28/18 @ 06:34 by Stacey Ware) History of AAA (abdominal aortic aneurysm) repair History of laser iridotomy Hx of cataract removal with insertion of prosthetic lens Hx of hand surgery Hx of hand surgery Hx of left inguinal hernia repair Hx of mitral valve replacement with cardiopulmonary bypass Hx of removal of neck cyst Hx of thoracic aortic aneurysm repair - Tobacco History Second Hand Smoke Exposure: No Tobacco Use In Past 30 Days: No Smoking Status: Never smoker - Alcohol History How Often Do You Have a Drink Containing Alcohol: Monthly or less - Substance Use History Substance History: No History of Abuse - Immunization History Hx Influenza Vaccine This Season: Yes Medications and Allergies Allergies Allergy/AdvReac Type Severity Reaction Status Date / Time lorazepam Allergy Severe Agitation, Verified 10/28/18 06:27 VALENTÍN AMEZCUA sulfamethoxazole Allergy Severe Nausea/Vomiting, Verified 10/28/18 06:27 DIORIENTATION trimethoprim Allergy Severe Nausea/Vomiting, Verified 10/28/18 06:27 DISORIENTATION Home Medications Medication Instructions Recorded Confirmed Type aspirin [Adult Low Dose Aspirin] 81 mg PO DAILY 10/21/18 10/28/18 History atorvastatin 20 mg PO QPM 10/21/18 10/28/18 History ferrous sulfate 324 mg PO DAILY 10/21/18 10/28/18 History folic acid 0.8 mg PO DAILY 10/21/18 10/28/18 History levothyroxine 25 mcg PO DAILY 10/21/18 10/28/18 History uzlwxedv-egr-LY-lycopen-lutein 1 tab PO DAILY 10/21/18 10/28/18 History [Centrum Silver Ultra Men's] pantoprazole 40 mg PO DAILY 10/21/18 10/28/18 History sennosides [senna] 2 tab PO HS 10/21/18 10/28/18 History warfarin [Coumadin] 5 mg PO DAILY 10/21/18 10/28/18 History warfarin [Coumadin] 7.5 mg PO DAILY 10/21/18 10/28/18 History Active Medications: Active Medications Al Hydroxide/Mg Hydroxide (Milk Of Tristen [place]) 30 ml PO Q12H PRN PRN Reason: Mild Constipation Aspirin (Aspirin Chew) 81 mg PO DAILY [facility] Last Admin: 10/29/18 09:02 Dose: 81 mg Atorvastatin Calcium (Lipitor) 20 mg PO QPM [facility] Last Admin: 10/29/18 07:31 Dose: Not Given Bisacodyl (Dulcolax Supp) 10 mg RECTAL DAILY PRN PRN Reason: SEVERE CONSITIPATION Famotidine (Pepcid) 20 mg PO BID [facility] Last Admin: 10/29/18 09:02 Dose: 20 mg Fentanyl Citrate (Fentanyl Inj) 50 mcg IV.PUSH Q1H PRN PRN Reason: Pain Scale 5 To 10 Last Admin: 10/28/18 15:56 Dose: 50 mcg Ferrous Sulfate (Ferosul) 325 mg PO DAILY [facility] Last Admin: 10/29/18 09:01 Dose: 325 mg Folic Acid (Folic Acid) 1 mg PO DAILY [facility] Last Admin: 10/29/18 09:01 Dose: 1 mg Heparin Sodium (Porcine) (Heparin Inj) 5,000 units SQ Q8H [facility] Hydromorphone HCl (Dilaudid) 2 mg PO Q4H PRN PRN Reason: PAIN SCALE 6 TO 10 Sodium Chloride (Ns Inj) 500 mls @ 30 mls/hr IV.SIG .Q10H [facility] Last Admin: 10/28/18 17:30 Dose: Not Given Lactated Ringer's (Lr 1000 Ml Inj) 1,000 mls @ 63 mls/hr IV.CONT .[id number] [facility] Last Admin: 10/29/18 06:03 Dose: 63 mls/hr Phenylephrine HCl 40 mg/ (Dextrose) 500 mls @ 18.75 mls/hr IV.CONT TITRATE PRN ; Protocol PRN Reason: Per Protocol Last Titration: 10/28/18 18:16 Dose: 0 mcg/min, 0 mls/hr Dopamine HCl 800 mg/ Sodium (Chloride) 520 mls @ 13.85 mls/hr IV.CONT TITRATE PRN; Protocol PRN Reason: See Protocol Naloxone HCl 4 mg/ Dextrose 250 mls @ 7.37 mls/hr IV.CONT TITRATE PRN PRN Reason: Ordered RASS Last Infusion: 10/29/18 06:14 Dose: 0.118 mg/hr, 7.37 mls/hr Lactulose (Lactulose Liq) 30 ml PO DAILY PRN PRN Reason: SEVERE CONSITIPATION Levothyroxine Sodium (Synthroid) 25 mcg PO DAILY@0600 [facility] Last Admin: 10/29/18 06:02 Dose: 25 mcg Morphine Sulfate (Morphine Inj) 2 mg IV.PUSH Q1H PRN PRN Reason: BREAKTHROUGH PAIN Multivitamins (Theragran) 1 tab PO DAILY [facility] Last Admin: 10/29/18 09:01 Dose: 1 tab Ondansetron HCl (Zofran Inj) 4 mg IV.PUSH Q6H PRN PRN Reason: NAUSEA Last Admin: 10/28/18 23:47 Dose: 4 mg Oxycodone HCl (Roxicodone) 5 mg PO Q4H PRN PRN Reason: PAIN SCALE 1 TO 5 Last Admin: 10/29/18 09:02 Dose: 5 mg Senna/Docusate Sodium (Annika-Colace) 1 tab PO BID [facility] Last Admin: 10/29/18 09:02 Dose: 1 tab Sennosides (Senokot) 17.2 mg PO Q12H PRN PRN Reason: Moderate Constipation Sennosides (Senokot) 17.2 mg PO HS [facility] Last Admin: 10/28/18 21:36 Dose: 17.2 mg Terbutaline Sulfate (Brethine Inj) 1 mg SQ UNSCH PRN PRN Reason: For Extravasation Terbutaline Sulfate (Brethine Inj) 1 mg SQ ONCE PRN PRN Reason: Extravasation Exam Vital signs: Vital Signs 10/28/18 13:10 10/28/18 13:15 10/28/18 13:30 Temperature 94.8 F L Pulse Rate 62 63 59 L Respiratory Rate 12 Blood Pressure 136/60 134/70 137/62 Pulse Oximetry 96 10/28/18 13:45 10/28/18 14:00 10/28/18 15:00 Temperature 95.2 F L Pulse Rate 66 54 L 56 L Respiratory Rate 12 12 Blood Pressure 126/80 155/78 H 162/75 H Pulse Oximetry 96 99 10/28/18 16:00 10/28/18 17:00 10/28/18 17:28 Temperature 95.4 F L 96 F L Pulse Rate 60 69 Respiratory Rate 13 15 Blood Pressure 160/78 H 144/63 H Pulse Oximetry 93 L 91 L 95 10/28/18 17:30 10/28/18 18:00 10/28/18 19:00 Temperature 96.2 F L 96.5 F L Pulse Rate 68 66 Respiratory Rate 16 16 18 Blood Pressure 151/85 H 148/74 H Pulse Oximetry 93 L 94 L 10/28/18 20:00 10/28/18 21:00 10/28/18 22:00 Temperature 96.9 F L 97.2 F L 97.2 F L Pulse Rate 67 68 67 Respiratory Rate 18 18 16 Blood Pressure 155/79 H 155/82 H 149/83 H Pulse Oximetry 93 L 95 92 L 10/28/18 22:18 10/28/18 23:00 10/28/18 23:35 Temperature 97.4 F L Pulse Rate 75 70 Respiratory Rate 20 Blood Pressure 120/87 Pulse Oximetry 94 L 95 10/29/18 00:00 10/29/18 01:00 10/29/18 02:00 Temperature 97.7 F 97.9 F 97.9 F Pulse Rate 69 68 68 Respiratory Rate 16 18 20 Blood Pressure 153/77 H 135/75 147/48 H Pulse Oximetry 95 96 92 L 10/29/18 03:00 10/29/18 03:15 10/29/18 04:00 Temperature 98 F 98 F Pulse Rate 80 79 73 Respiratory Rate 20 20 Blood Pressure 141/88 H 144/84 H Pulse Oximetry 96 94 L 10/29/18 05:00 10/29/18 06:00 10/29/18 07:00 Temperature 98.3 F 98.3 F 97.9 F Pulse Rate 74 73 83 Respiratory Rate 18 18 15 Blood Pressure 151/80 H 145/84 H 141/77 H Pulse Oximetry 95 94 L 95 10/29/18 08:00 10/29/18 09:00 10/29/18 10:00 Temperature 98.4 F 98.5 F 98.6 F Pulse Rate 80 82 75 Respiratory Rate 16 14 16 Blood Pressure 149/81 H 142/79 H 140/79 Pulse Oximetry 92 L 93 L 95 Intake & Output 10/28/18 10/29/18 10/29/18 18:59 06:59 18:59 Intake Total 3139 / 3139 1644 / 1644 Output Total 1453 / 1453 1349 / 1349 Balance 1686 / 1686 295 / 295 Weight 119 kg Intake: IV 539 / 539 1044 / 1044 Intropin 400 MG/250 ML Premix 50 / 50 400 mg In 250 ml @ 0 mls/hr IV. CONT .STK-MED ONE Rx#:[id number] LR 1000 mL Inj 1,000 ML @ 63 245 / 245 755 / 755 mls/hr IV.CONT .[id number] [facility] Rx# :[id number] Narcan Inj 4 MG In D5W Inj 246 67 / 67 89 / 89 ML @ 0.118 MG/HR 7.37 mls/hr IV .CONT TITRATE PRN Rx#:[id number] Neosynephrine Inj 40 MG In D5W 177 / 177 Inj 496 ML @ 25 MCG/MIN 18.75 mls/hr IV.CONT TITRATE PRN Rx#: [id number] Oral 600 / 600 Anesthesia Amount 2600 / 2600 Output: Estimated Blood Loss 150 / 150 Urine Amount (Catheter) 1250 / 1250 1260 / 1260 Indwelling Temp Sensing 1250 / 1250 1260 / 1260 Catheter Wound Drainage # 1 Lower Posterior Back Lumbar - Constitutional no acute distress, obese, cooperative - Routine HEENT Exam Head: Present: normocephalic, atraumatic Eye: Present: EOMI, PERRL, normal accommodation ENT: Present: mucous membranes moist - Routine Neck Exam Comments: Left neck incision, ecchymosis - Routine Respiratory Exam Present: CTA bilaterally - Routine Cardiovascular Exam Present: irregular rhythm - Routine Abdominal Exam Present: soft - Routine Skin Exam Present: intact - Routine Neurological Exam Present: alert, oriented X3 chronic left facial droop Results 10/30/18 03:45 10/30/18 03:45 Cardiac Enzymes 10/28/18 10/28/18 Range/Units 14:06 14:06 AST 21 (15-37) U/L Troponin I 0.02 (0.02-0.05) ng/mL Coagulation 10/28/18 Range/Units 06:30 PT 11.8 H D (9.8-11.6) sec CBC 10/28/18 10/29/18 Range/Units 14:06 04:40 WBC 8.2 12.8 H D (4.0-11.0) th/mm3 RBC 3.92 L 4.15 L (4.50-5.90) mil/mm3 Hgb 10.2 L 10.6 L (13.0-17.0) gm/dL Hct 31.6 L 32.7 L (39.0-51.0) % Plt Count 168 174 (150-450) th/mm3 Comprehensive Metabolic Panel 10/28/18 10/29/18 Range/Units 14:06 04:40 Sodium 141 140 (136-145) meq/L Potassium 3.8 4.0 (3.5-5.1) meq/L Chloride 108 H 107 (98-107) meq/L Carbon Dioxide 25.1 26.5 (21.0-32.0) meq/L BUN 16 18 (7-18) mg/dL Creatinine 0.86 0.80 (0.60-1.30) mg/dL Calcium 8.1 L 8.8 (8.5-10.1) mg/dL AST 21 (15-37) U/L ALT 32 (12-78) U/L Alkaline Phosphatase 116 (45-117) U/L Total Protein 7.5 (6.4-8.2) g/dL Albumin 3.1 L (3.4-5.0) g/dL Intake and Output 10/28/18 10/29/18 10/29/18 22:59 06:59 14:59 Intake Total 539 / 539 1644 / 1644 Output Total 803 / 803 1349 / 1349 Balance -264 / -264 295 / 295 Intake: IV 539 / 539 1044 / 1044 Intropin 400 MG/250 ML Premix 50 / 50 400 mg In 250 ml @ 0 mls/hr IV. CONT .STK-MED ONE Rx#:[id number] LR 1000 mL Inj 1,000 ML @ 63 245 / 245 755 / 755 mls/hr IV.CONT .[id number] [facility] Rx# :[id number] Narcan Inj 4 MG In D5W Inj 246 67 / 67 89 / 89 ML @ 0.118 MG/HR 7.37 mls/hr IV .CONT TITRATE PRN Rx#:[id number] Neosynephrine Inj 40 MG In D5W 177 / 177 Inj 496 ML @ 25 MCG/MIN 18.75 mls/hr IV.CONT TITRATE PRN Rx#: [id number] Oral 600 / 600 Output: Urine Amount (Catheter) 750 / 750 1260 / 1260 Indwelling Temp Sensing 750 / 750 1260 / 1260 Catheter Wound Drainage / 53 89 / 89 # 1 Lower Posterior Back Lumbar 53 89 / Other: Weight 119 kg - Imaging and Cardiology Imaging: Impressions Chest X-Ray 10/28/18 00:00 CONCLUSION: Tortuous aorta status post stent graft placement. Right IJ central venous catheter with its tip overlying the SVC Lumbar Puncture Fluoroscopy 10/28/18 00:00 CONCLUSION: 1. Uncomplicated lumbar drain placement as above. Clear CSF noted. Assessment and Plan - Plan Assessment TEVAR and left carotid subclavian bypass Symptomatic bradycardia AAA History of CVA 2012 Chronic atrial fibrillation Hyperlipidemia Last echocardiogram was completed in office December 2017 showed EF of 54, aortic valve replacement, AV max peak gradient of 21, aortic valve area 1.7 cm, mitral valve replacement, mitral valve area 1.4 cm, moderate TR, biatrial enlargement, right ventricular enlargement, dilated IVC, LVH Plan -Recovering well, lumbar drain and narcan infusion in place for spinal cord injury prophylaxis. -Chronic atrial fibrillation with intermittent bradycardia. He is asymptomatic at this time heart rate has been in the 80s and 90s all day. Discussed the possibility of needing a pacemaker down the road, at this time we will continue to monitor him closely. -Currently on dopamine to keep map above 100 and heart rate more than 60 -Aspirin resumed, continue Lipitor -We will need to resume Coumadin once lumbar drain has been pulled and okayed by Dr. Ross. The patient was seen and evaluated by Dr. Slaughter who participated in care management and decision making The exam, history, and the medical decision-making described in the above note were completed with the assistance of the mid-level provider. I reviewed and agree with the findings presented. I attest that I had a [id number] encounter with the patient on the same day, and personally performed and documented my assessment and findings in the medical record. Overall doing better, will treat medically and watch for bradycardia. Code Status: Full code Discussed Condition With: Dr. Slaughter, RN, patient's son and
[2018-10-29] MEDS: Heparin - SQ 10,000 UNITS/ML Vial SQ SCH ×2 (13:24→21:36)
[2018-10-29] MEDS ORDERED: DOPamine 800 MG/500 ML Premix 800 MG/500 ML PLAST..BAG IV.CONT PRN (14:30)
--- NOTE | 2018-10-29 21:36 | ECG ---
Date Performed: 10/29/2018 Time Performed: 03:49:52 PTAGE: 77 years EKG: Sinus rhythm WITH FIRST DEGREE AV BLOCK Left axis deviation RBBB with left anterior fascicular block Abnormal ECG PREVIOUS TRACING : 10/28/2018 14.02 Since the previous tracing, no significant change noted DOCTOR: Malcolm Grant Interpretating Date/Time 10/29/2018 21:35:49
--- NOTE | 2018-10-29 22:23 | ECG ---
Date Performed: 10/28/2018 Time Performed: 14:02:46 PTAGE: 77 years EKG: Accelerated idioventricular rhythm. Left axis deviation RBBB with left anterior fascicular block Inferior T wave changes are nonspecific Abnormal ECG NO PREVIOUS TRACING DOCTOR: Malcolm Grant Interpretating Date/Time 10/29/2018 22:22:56
[2018-10-30 04:12] LABS: Hematocrit 29.8 % (39.0-51.0); Hemoglobin 9.8 gm/dL (13.0-17.0); Mean Corpuscular HGB Conc 32.8 % (32.0-36.0); Mean Corpuscular Hemoglobin 26.4 pg (27.0-34.0); Mean Corpuscular Volume 80.6 fL (80.0-100.0); Mean Platelet Volume 7.1 fL (7.0-11.0); Platelet Count 155 th/mm3 (150-450); White Blood Count 10.3 th/mm3 (4.0-11.0)
[2018-10-30 04:32] LABS: Anion Gap 5 meq/L (5-15); Blood Urea Nitrogen 17 mg/dL (7-18); Calcium 8.1 mg/dL (8.5-10.1); Carbon Dioxide 30.4 meq/L (21.0-32.0); Chloride 105 meq/L (98-107); Glomerular Filtration Rate Greater Than 89 mL/min (>89); Glucose,Random 127 mg/dL (74-106); Potassium 4.1 meq/L (3.5-5.1); Sodium 140 meq/L (136-145)
[2018-10-30] MEDS: Heparin - SQ 10,000 UNITS/ML Vial SQ SCH ×3 (05:11→21:15)
--- NOTE | 2018-10-30 06:59 | P.PNCC ---
Subjective Subjective Remarks/Hospital Course: 77-year-old male with past medical history significant for atrial fibrillation, dyslipidemia, previous AAA repair, TEVAR 6 years ago, history of stroke, obesity, history of temporal arteritis and polymyalgia who underwent Left carotid-subclavian bypass and TEVAR including L SCA coverage with successful relining from left common carotid artery to celiac. Had previous TEVAR 6 years ago, developed proximal and distal I endoleak. Lumbar drain was placed for spinal cord injury prophylaxis. Post op patient was moved to the CVICU where I evaluated him. He is somnolent from procedural sedation. However wakes up moves all extremities. Currently receiving [place]-Synephrine at 40 mcg/min to keep map above 100. Lumbar drain in plac. Patient is also on Narcan infusion for SCI prophylaxis. On my evaluation patient intermittently bradycardic. Underlying rhythm is A. fib. Will change pressors to dopamine to target heart rate >60, map more than 100. Discussed with Dr. Ross. SUBJ 10/29: Patient remains neuro intact. Currently on dopamine to maintain map lumbar drain in place. Neurologically intact. Intermittently bradycardic to 30s with nausea/vomiting. Cardiology Dr. Slaughter consult requested 10/30: Lumbar drain is clamped patient remains neurologically intact. No further bradycardia. Currently dopamine at 4 mcg/kg/min. Lumbar drain to be removed today Objective Vital Signs / I&O: Vital Signs 10/29/18 07:00 10/29/18 07:45 10/29/18 08:00 Temperature 97.9 F 98.4 F Pulse Rate 83 80 Respiratory Rate 15 16 Blood Pressure 141/77 H 149/81 H Pulse Oximetry 95 93 L 92 L 10/29/18 09:00 10/29/18 10:00 10/29/18 11:00 Temperature 98.5 F 98.6 F 98.9 F Pulse Rate 82 75 77 Respiratory Rate 14 16 16 Blood Pressure 142/79 H 140/79 140/79 Pulse Oximetry 93 L 95 93 L 10/29/18 12:00 10/29/18 13:00 10/29/18 14:00 Temperature Pulse Rate 79 88 88 Respiratory Rate 15 16 16 Blood Pressure 140/82 124/71 126/71 Pulse Oximetry 94 L 95 93 L 10/29/18 15:00 10/29/18 15:34 10/29/18 16:00 Temperature 99 F Pulse Rate 85 86 Respiratory Rate 17 14 16 Blood Pressure 142/80 H 132/75 Pulse Oximetry 95 93 L 10/29/18 17:00 10/29/18 18:00 10/29/18 20:00 Temperature 99.0 F Pulse Rate 103 H 99 H 96 H Respiratory Rate 17 17 20 Blood Pressure 136/87 136/84 143/78 H Pulse Oximetry 93 L 92 L 92 L 10/29/18 21:30 10/29/18 21:35 10/30/18 00:00 Temperature 98.9 F Pulse Rate 95 H Respiratory Rate 18 Blood Pressure 127/76 Pulse Oximetry 96 98 96 10/30/18 03:00 10/30/18 04:00 Temperature 98.8 F Pulse Rate 75 Respiratory Rate 18 18 Blood Pressure 127/73 Pulse Oximetry 98 Intake & Output 10/29/18 10/29/18 10/30/18 06:59 18:59 06:59 Intake Total 1644 / 1644 1056 / 1056 330 / 330 Output Total 1349 / 1349 1599 / 1599 Balance 295 / 295 -543 / -543 330 / 330 Weight 119 kg Intake: IV 1044 / 1044 1056 / 1056 330 / 330 Intropin 400 MG/250 ML Premix 225 / 225 400 mg In 250 ml @ 0 mls/hr IV. CONT .STK-MED ONE Rx#:[id number] DOPamine 800 MG/500 ML Premix 76 / 76 800 mg In 500 ml @ 3 MCG/KG/MIN 13.32 mls/hr IV.CONT TITRATE PRN Rx#:[id number] LR 1000 mL Inj 1,000 ML @ 63 755 / 755 670 / 670 330 / 330 mls/hr IV.CONT .[id number] [facility] Rx# :[id number] Narcan Inj 4 MG In D5W Inj 246 85 / 85 ML @ 0.118 MG/HR 7.37 mls/hr IV .CONT TITRATE PRN Rx#:[id number] Oral 600 / 600 Output: Urine Amount (Catheter) 1260 / 1260 1550 / 1550 Indwelling Temp Sensing 1260 / 1260 1550 / 1550 Catheter Wound Drainage 49 / 49 # 1 Lower Posterior Back Lumbar 49 49 Result Diagrams: 10/30/18 03:45 10/30/18 03:45 Objective Remarks: GENERAL: This is a well-nourished, well-developed patient, alert awake SKIN: No rashes, ecchymoses or lesions. Cool and dry. HEAD: Atraumatic. Normocephalic. Left facial droop which is chronic EYES: Pupils equal round and reactive. No scleral icterus. NECK: Trachea midline. Right IJ central line in place. Left lower neck neck incision CDI, Dermabond in place CARDIOVASCULAR: Intermittently bradycardic rate and rhythm without murmurs, gallops, or rubs. Underlying atrial fibrillation with slow ventricular rate RESPIRATORY: Clear to auscultation. No wheezes or crackles GASTROINTESTINAL: Abdomen soft, non-tender, nondistended. No guarding. MUSCULOSKELETAL: Peripheral pulses palp. No calf tenderness. Peripheral pulses are palpable. No groin hematoma at the puncture sites BACK: Lumbar drain in place with clear CSF NEUROLOGICAL: Alert awake oriented, left facial drop is chronic from previous CVA. Receiving Narcan infusion for spinal cord injury prophylaxis. Lumbar drain in place. Able to move extremities follows commands. No new focal deficits Assessment and Plan - Assessment and Plan Plan: ASSESSMENT TEVAR and Left carotid-subclavian bypass Previous TEVAR developed proximal and distal endoleak SCI prophylaxis Symptomatic bradycardia History of AAA repair History of CVA in the past History of polymyalgia rheumatica Chronic atrial fibrillation Dyslipidemia Obesity PLAN: NEURO: -Close neuro monitoring no focal deficits at this time -Lumbar drain placed for spinal cord injury prophylaxis, maintain map more than 100 for 24 hours -Number drain clamped yesterday removed today per Dr. Ross -Narcan infusion for spinal cord injury prophylaxis -Fentanyl for pain control RESP: -DuoNeb every 2 hours as needed CV: -Maintenance LR per vascular surgery -Chronic atrial fibrillation with intermittent bradycardia -Consult to patient's head of english Dr. Slaughter-no pacemaker at this time -Currently on dopamine to keep map above 100 and heart rate more than 60 -Wean dopamine to DC as tolerated -Normal troponin lactic acid -Resumed aspirin, continue Lipitor -Restart Coumadin after lumbar drain is removed and cleared by Dr. Ross GI: -Diet per Dr. Ross : -Monitor renal function closely. Ordonez catheter for strict intake output ID: -Perioperative antibiotics per Dr. Ross HEME: -Monitor CBC, coags ENDO: -Electrolyte replacement per protocol PROPH: -SQ Heparin/famotidine LINES: -Utilize peripheral IVs, central line art line in place Level 3 Continue ICU care due to lumbar drain and dopamine infusion.
[2018-10-30] MEDS: Famotidine 20 MG Tablet PO SCH ×2 (08:40→21:15)
[2018-10-30] MEDS: Ferrous Sulfate 325 MG Tablet PO SCH (08:42)
[2018-10-30] MEDS: Senna/Docusate Sodium 8.6/50 MG Tablet PO SCH ×2 (08:42→21:15)
[2018-10-30] MEDS: Folic Acid 1 MG Tablet PO SCH (08:42)
--- NOTE | 2018-10-30 08:51 | P.PNVS ---
Subjective Post Op Day #: 2 Procedure: L C-SC, TEVAR Subjective/Hospital Course: neuro intact no nausea overall feels great tolerating diet dopamine gtt dec to 4 Objective Vital Signs / I&O: Vital Signs 10/29/18 09:00 10/29/18 10:00 10/29/18 11:00 Temperature 98.5 F 98.6 F 98.9 F Pulse Rate 82 75 77 Respiratory Rate 14 16 16 Blood Pressure 142/79 H 140/79 140/79 Pulse Oximetry 93 L 95 93 L 10/29/18 12:00 10/29/18 13:00 10/29/18 14:00 Temperature Pulse Rate 79 88 88 Respiratory Rate 15 16 16 Blood Pressure 140/82 124/71 126/71 Pulse Oximetry 94 L 95 93 L 10/29/18 15:00 10/29/18 15:34 10/29/18 16:00 Temperature 99 F Pulse Rate 85 86 Respiratory Rate 17 14 16 Blood Pressure 142/80 H 132/75 Pulse Oximetry 95 93 L 10/29/18 17:00 10/29/18 18:00 10/29/18 20:00 Temperature 99.0 F Pulse Rate 103 H 99 H 96 H Respiratory Rate 17 17 20 Blood Pressure 136/87 136/84 143/78 H Pulse Oximetry 93 L 92 L 92 L 10/29/18 21:30 10/29/18 21:35 10/30/18 00:00 Temperature 98.9 F Pulse Rate 95 H Respiratory Rate 18 Blood Pressure 127/76 Pulse Oximetry 96 98 96 10/30/18 03:00 10/30/18 04:00 10/30/18 07:00 Temperature 98.8 F Pulse Rate 75 87 Respiratory Rate 18 18 18 Blood Pressure 127/73 Pulse Oximetry 98 10/30/18 07:25 10/30/18 08:00 Temperature 98.7 F Pulse Rate 87 Respiratory Rate 20 Blood Pressure 130/76 Pulse Oximetry 93 L 94 L Intake & Output 10/29/18 10/30/18 10/30/18 18:59 06:59 18:59 Intake Total 1056 / 1056 570 / 570 Output Total 1599 / 1599 1250 / 1250 Balance -543 / -543 -680 / -680 Weight 121 kg Intake: IV 1056 / 1056 330 / 330 Intropin 400 MG/250 ML Premix 225 / 225 400 mg In 250 ml @ 0 mls/hr IV. CONT .STK-MED ONE Rx#:[id number] DOPamine 800 MG/500 ML Premix 76 / 76 800 mg In 500 ml @ 3 MCG/KG/MIN 13.32 mls/hr IV.CONT TITRATE PRN Rx#:[id number] LR 1000 mL Inj 1,000 ML @ 63 670 / 670 330 / 330 mls/hr IV.CONT .[id number] [facility] Rx# :[id number] Narcan Inj 4 MG In D5W Inj 246 85 / 85 ML @ 0.118 MG/HR 7.37 mls/hr IV .CONT TITRATE PRN Rx#:[id number] Oral 240 / 240 Output: Urine Amount (Catheter) 1550 / 1550 1250 / 1250 Indwelling Temp Sensing 1550 / 1550 1250 / 1250 Catheter Wound Drainage # 1 Lower Posterior Back Lumbar Other: # Bowel Movements 0 Exam: resting comfortably no distress MAW palpable L UE and B LE pulses Laboratory Results - last 24 hr 10/30/18 10/30/18 03:45 03:45 WBC 10.3 RBC 3.70 L Hgb 9.8 L Hct 29.8 L MCV 80.6 MCH 26.4 L MCHC 32.8 RDW 16.0 Plt Count 155 MPV 7.1 Sodium 140 Potassium 4.1 Chloride 105 Carbon Dioxide 30.4 Anion Gap 5 BUN 17 Creatinine 0.82 Estimated GFR Greater than 89 Random Glucose 127 H Calcium 8.1 L Assessment and Plan - Assessment (1) Thoracic aortic aneurysm Code(s): I71.2 - Thoracic aortic aneurysm, without rupture Status: Acute - Plan POD#2 s/p L C-SC/TEVAR 1. goal MAP 80mmHg; continue MIVF and dopamine 2. continue neuro checks 3. d/c spinal drain at noon today; post-removal activity per IR then OOB TC 4. cardiac diet 5. will resume anticoagulation Saturday 6. D/C Narcan gtt at noon today Discharge Planning: likely out of ICU Saturday
--- NOTE | 2018-10-30 12:55 | P.PNCA ---
Subjective Interval history: Doing well. No further episodes of bradycardia. Lumbar drained pulled today. at bedside. Medications and Allergies Allergies Allergy/AdvReac Type Severity Reaction Status Date / Time lorazepam Allergy Severe Agitation, Verified 10/28/18 06:27 VALENTÍN AMEZCUA sulfamethoxazole Allergy Severe Nausea/Vomiting, Verified 10/28/18 06:27 DIORIENTATION trimethoprim Allergy Severe Nausea/Vomiting, Verified 10/28/18 06:27 DISORIENTATION Home Medications Medication Instructions Recorded Confirmed Type aspirin [Adult Low Dose Aspirin] 81 mg PO DAILY 10/21/18 10/28/18 History atorvastatin 20 mg PO QPM 10/21/18 10/28/18 History ferrous sulfate 324 mg PO DAILY 10/21/18 10/28/18 History folic acid 0.8 mg PO DAILY 10/21/18 10/28/18 History levothyroxine 25 mcg PO DAILY 10/21/18 10/28/18 History poalkpay-sfr-GR-lycopen-lutein 1 tab PO DAILY 10/21/18 10/28/18 History [Centrum Silver Ultra Men's] pantoprazole 40 mg PO DAILY 10/21/18 10/28/18 History sennosides [senna] 2 tab PO HS 10/21/18 10/28/18 History warfarin [Coumadin] 5 mg PO DAILY 10/21/18 10/28/18 History warfarin [Coumadin] 7.5 mg PO DAILY 10/21/18 10/28/18 History Active Medications: Active Medications Al Hydroxide/Mg Hydroxide (Milk Of Magnmadison Liq) 30 ml PO Q12H PRN PRN Reason: Mild Constipation Aspirin (Aspirin Chew) 81 mg PO DAILY [facility] Last Admin: 10/30/18 08:40 Dose: 81 mg Atorvastatin Calcium (Lipitor) 20 mg PO QPM [facility] Last Admin: 10/29/18 17:04 Dose: 20 mg Bisacodyl (Dulcolax Supp) 10 mg RECTAL DAILY PRN PRN Reason: SEVERE CONSITIPATION Famotidine (Pepcid) 20 mg PO BID [facility] Last Admin: 10/30/18 08:40 Dose: 20 mg Fentanyl Citrate (Fentanyl Inj) 50 mcg IV.PUSH Q1H PRN PRN Reason: Pain Scale 5 To 10 Last Admin: 10/28/18 15:56 Dose: 50 mcg Ferrous Sulfate (Ferosul) 325 mg PO DAILY [facility] Last Admin: 10/30/18 08:42 Dose: 325 mg Folic Acid (Folic Acid) 1 mg PO DAILY [facility] Last Admin: 10/30/18 08:42 Dose: 1 mg Heparin Sodium (Porcine) (Heparin Inj) 5,000 units SQ Q8H [facility] Last Admin: 10/30/18 12:31 Dose: 5,000 units Hydromorphone HCl (Dilaudid) 2 mg PO Q4H PRN PRN Reason: PAIN SCALE 6 TO 10 Last Admin: 10/29/18 21:41 Dose: 2 mg Sodium Chloride (Ns Inj) 500 mls @ 30 mls/hr IV.SIG .Q10H [facility] Last Admin: 10/28/18 17:30 Dose: Not Given Lactated Ringer's (Lr 1000 Ml Inj) 1,000 mls @ 63 mls/hr IV.CONT .[id number] [facility] Last Admin: 10/29/18 21:36 Dose: 63 mls/hr Phenylephrine HCl 40 mg/ (Dextrose) 500 mls @ 18.75 mls/hr IV.CONT TITRATE PRN ; Protocol PRN Reason: Per Protocol Last Titration: 10/28/18 18:16 Dose: 0 mcg/min, 0 mls/hr Naloxone HCl 4 mg/ Dextrose 250 mls @ 7.37 mls/hr IV.CONT TITRATE PRN PRN Reason: Ordered RASS Last Infusion: 10/29/18 19:00 Dose: 0.118 mg/hr, 7.37 mls/hr Dopamine HCl/Dextrose (Dopamine 800 Mg/500 Ml Premix) 800 mg in 500 mls @ 13.32 mls/hr IV.CONT TITRATE PRN; Protocol PRN Reason: SEE LABEL COMMENTS Last Titration: 10/30/18 06:00 Dose: 4 mcg/kg/min, 17.76 mls/hr Lactulose (Lactulose Liq) 30 ml PO DAILY PRN PRN Reason: SEVERE CONSITIPATION Levothyroxine Sodium (Synthroid) 25 mcg PO DAILY@0600 [facility] Last Admin: 10/30/18 07:12 Dose: 25 mcg Morphine Sulfate (Morphine Inj) 2 mg IV.PUSH Q1H PRN PRN Reason: BREAKTHROUGH PAIN Multivitamins (Theragran) 1 tab PO DAILY [facility] Last Admin: 10/30/18 08:41 Dose: 1 tab Ondansetron HCl (Zofran Inj) 4 mg IV.PUSH Q6H PRN PRN Reason: NAUSEA Last Admin: 10/28/18 23:47 Dose: 4 mg Oxycodone HCl (Roxicodone) 5 mg PO Q4H PRN PRN Reason: PAIN SCALE 1 TO 5 Last Admin: 10/29/18 18:45 Dose: 5 mg Senna/Docusate Sodium (Annika-Colace) 1 tab PO BID [facility] Last Admin: 10/30/18 08:42 Dose: 1 tab Sennosides (Senokot) 17.2 mg PO Q12H PRN PRN Reason: Moderate Constipation Sennosides (Senokot) 17.2 mg PO HS [facility] Last Admin: 10/29/18 21:37 Dose: 17.2 mg Terbutaline Sulfate (Brethine Inj) 1 mg SQ UNSCH PRN PRN Reason: For Extravasation Terbutaline Sulfate (Brethine Inj) 1 mg SQ ONCE PRN PRN Reason: Extravasation Physical Exam Vital signs: Vital Signs 10/29/18 13:00 10/29/18 14:00 10/29/18 15:00 Temperature 99 F Pulse Rate 88 88 85 Respiratory Rate 16 16 17 Blood Pressure 124/71 126/71 142/80 H Pulse Oximetry 95 93 L 95 10/29/18 15:34 10/29/18 16:00 10/29/18 17:00 Temperature Pulse Rate 86 103 H Respiratory Rate 14 16 17 Blood Pressure 132/75 136/87 Pulse Oximetry 93 L 93 L 10/29/18 18:00 10/29/18 20:00 10/29/18 21:30 Temperature 99.0 F Pulse Rate 99 H 96 H Respiratory Rate 17 20 Blood Pressure 136/84 143/78 H Pulse Oximetry 92 L 92 L 96 10/29/18 21:35 10/30/18 00:00 10/30/18 03:00 Temperature 98.9 F Pulse Rate 95 H Respiratory Rate 18 18 Blood Pressure 127/76 Pulse Oximetry 98 96 10/30/18 04:00 10/30/18 07:00 10/30/18 07:25 Temperature 98.8 F Pulse Rate 75 87 Respiratory Rate 18 18 Blood Pressure 127/73 Pulse Oximetry 98 93 L 10/30/18 08:00 10/30/18 11:00 10/30/18 12:00 Temperature 98.7 F 99.0 F Pulse Rate 87 95 H 81 Respiratory Rate 20 Blood Pressure 130/76 118/69 Pulse Oximetry 94 L 95 94 L Intake & Output 10/29/18 10/30/18 10/30/18 18:59 06:59 18:59 Intake Total 1056 / 1056 570 / 570 Output Total 1599 / 1599 1250 / 1250 Balance -543 / -543 -680 / -680 Weight 121 kg Intake: IV 1056 / 1056 330 / 330 Intropin 400 MG/250 ML Premix 225 / 225 400 mg In 250 ml @ 0 mls/hr IV. CONT .STK-MED ONE Rx#:[id number] DOPamine 800 MG/500 ML Premix 76 / 76 800 mg In 500 ml @ 3 MCG/KG/MIN 13.32 mls/hr IV.CONT TITRATE PRN Rx#:[id number] LR 1000 mL Inj 1,000 ML @ 63 670 / 670 330 / 330 mls/hr IV.CONT .[id number] [facility] Rx# :[id number] Narcan Inj 4 MG In D5W Inj 246 85 / 85 ML @ 0.118 MG/HR 7.37 mls/hr IV .CONT TITRATE PRN Rx#:[id number] Oral 240 / 240 Output: Urine Amount (Catheter) 1550 / 1550 1250 / 1250 Indwelling Temp Sensing 1550 / 1550 1250 / 1250 Catheter Wound Drainage 49 / 49 # 1 Lower Posterior Back Lumbar 49 / 49 Other: # Bowel Movements 0 - Constitutional no acute distress, obese - Routine HEENT Exam Head: Present: normocephalic, atraumatic Eye: Present: EOMI, PERRL, normal accommodation ENT: Present: mucous membranes moist - Routine Neck Exam Present: supple - Routine Respiratory Exam Present: CTA bilaterally - Routine Cardiovascular Exam Present: irregular rhythm - Routine Abdominal Exam Present: soft - Routine Extremities Exam Present: pulses intact - Routine Skin Exam Present: intact - Routine Neurological Exam Present: alert, oriented X3 - Detailed Neurological Exam: Coma Scale Eye Opening: Spontaneous Verbal Response: Oriented Motor Response: Obey commands Mcdonald Coma Scale Total: 15 - Urinary Catheter Management Indwelling Temp Sensing Catheter Cath placed during this visit: yes Reason for continuing: Hourly intake/output Insertion date: 10/28/18 Insertion time: 08:45 Results 10/30/18 03:45 10/30/18 03:45 Cardiac Enzymes 10/28/18 10/28/18 Range/Units 14:06 14:06 AST 21 (15-37) U/L Troponin I 0.02 (0.02-0.05) ng/mL CBC 10/28/18 10/29/18 10/30/18 Range/Units 14:06 04:40 03:45 WBC 8.2 12.8 H D 10.3 (4.0-11.0) th/mm3 RBC 3.92 L 4.15 L 3.70 L (4.50-5.90) mil/mm3 Hgb 10.2 L 10.6 L 9.8 L (13.0-17.0) gm/dL Hct 31.6 L 32.7 L 29.8 L (39.0-51.0) % Plt Count 168 174 155 (150-450) th/mm3 Comprehensive Metabolic Panel 10/28/18 10/29/18 10/30/18 Range/Units 14:06 04:40 03:45 Sodium 141 140 140 (136-145) meq/L Potassium 3.8 4.0 4.1 (3.5-5.1) meq/L Chloride 108 H 107 105 (98-107) meq/L Carbon Dioxide 25.1 26.5 30.4 (21.0-32.0) meq/L BUN 16 18 17 (7-18) mg/dL Creatinine 0.86 0.80 0.82 (0.60-1.30) mg/dL Calcium 8.1 L 8.8 8.1 L (8.5-10.1) mg/dL AST 21 (15-37) U/L ALT 32 (12-78) U/L Alkaline Phosphatase 116 (45-117) U/L Total Protein 7.5 (6.4-8.2) g/dL Albumin 3.1 L (3.4-5.0) g/dL Intake and Output 10/29/18 10/30/18 10/30/18 22:59 06:59 14:59 Intake Total 1386 / 1386 240 / 240 Output Total 1599 / 1599 1250 / 1250 Balance -213 / -213 -1010 / -1010 Intake: IV 1386 / 1386 Intropin 400 MG/250 ML Premix 225 / 225 400 mg In 250 ml @ 0 mls/hr IV. CONT .STK-MED ONE Rx#:[id number] DOPamine 800 MG/500 ML Premix 76 / 76 800 mg In 500 ml @ 3 MCG/KG/MIN 13.32 mls/hr IV.CONT TITRATE PRN Rx#:[id number] LR 1000 mL Inj 1,000 ML @ 63 1000 / 1000 mls/hr IV.CONT .[id number] [facility] Rx# :[id number] Narcan Inj 4 MG In D5W Inj 246 85 / 85 ML @ 0.118 MG/HR 7.37 mls/hr IV .CONT TITRATE PRN Rx#:[id number] Oral 240 / 240 Output: Urine Amount (Catheter) 1550 / 1550 1250 / 1250 Indwelling Temp Sensing 1550 / 1550 1250 / 1250 Catheter Wound Drainage # 1 Lower Posterior Back Lumbar 49 / Other: # Bowel Movements 0 Weight 121 kg - Imaging and Cardiology Imaging: Impressions Chest X-Ray 10/28/18 00:00 CONCLUSION: Tortuous aorta status post stent graft placement. Right IJ central venous catheter with its tip overlying the SVC Assessment and Plan - Plan Assessment TEVAR and left carotid subclavian bypass Symptomatic bradycardia AAA History of CVA 2012 Chronic atrial fibrillation Hyperlipidemia Last echocardiogram was completed in office December 2017 showed EF of 54, aortic valve replacement, AV max peak gradient of 21, aortic valve area 1.7 cm, mitral valve replacement, mitral valve area 1.4 cm, moderate TR, biatrial enlargement, right ventricular enlargement, dilated IVC, LVH Plan -Recovering well, lumbar drain removed. -Chronic atrial fibrillation with intermittent bradycardia. No further episodes of bradycardia. Discussed the possibility of needing a pacemaker down the road, at this time we will continue to monitor him closely. -Continues on dopamine. -Aspirin resumed, continue Lipitor -Per Dr. Ross, will resume Anticoagulation Saturday. The patient was seen and evaluated by Dr. Slaughter who participated in care management and decision making The exam, history, and the medical decision-making described in the above note were completed with the assistance of the mid-level provider. I reviewed and agree with the findings presented. Heart rate better no bradycardia noted no pacer now. Code Status: Full Code Discussed Condition With: Dr. Slaughter, RN and patients
[2018-10-31] MEDS: Heparin - SQ 10,000 UNITS/ML Vial SQ SCH ×3 (04:51→21:00)
--- NOTE | 2018-10-31 07:04 | P.PNCC ---
Subjective Subjective Remarks/Hospital Course: 77-year-old male with past medical history significant for atrial fibrillation, dyslipidemia, previous AAA repair, TEVAR 6 years ago, history of stroke, obesity, history of temporal arteritis and polymyalgia who underwent Left carotid-subclavian bypass and TEVAR including L SCA coverage with successful relining from left common carotid artery to celiac. Had previous TEVAR 6 years ago, developed proximal and distal I endoleak. Lumbar drain was placed for spinal cord injury prophylaxis. Post op patient was moved to the CVICU where I evaluated him. He is somnolent from procedural sedation. However wakes up moves all extremities. Currently receiving Carlitos-Synephrine at 40 mcg/min to keep map above 100. Lumbar drain in plac. Patient is also on Narcan infusion for SCI prophylaxis. On my evaluation patient intermittently bradycardic. Underlying rhythm is A. fib. Will change pressors to dopamine to target heart rate >60, map more than 100. Discussed with Dr[address] Ross. SUBJ 10/29: Patient remains neuro intact. Currently on dopamine to maintain map lumbar drain in place. Neurologically intact. Intermittently bradycardic to 30s with nausea/vomiting. Cardiology Dr. Slaughter consult requested 10/30: Lumbar drain is clamped patient remains neurologically intact. No further bradycardia. Currently dopamine at 4 mcg/kg/min. Lumbar drain to be removed today 10/31: Doing well lumbar drain removed yesterday. No neurological deficits. Urine output is adequate. Patient has been noticed to have some desaturation when sleeping. He has sleep apnea, advised to get the home CPAP machine Objective Vital Signs / I&O: Vital Signs 10/30/18 07:25 10/30/18 08:00 10/30/18 11:00 Temperature 98.7 F Pulse Rate 87 95 H Respiratory Rate 20 Blood Pressure 130/76 Pulse Oximetry 93 L 94 L 95 10/30/18 12:00 10/30/18 15:00 10/30/18 16:00 Temperature 99.0 F 98.6 F Pulse Rate 81 95 H 85 Respiratory Rate 16 Blood Pressure 118/69 122/63 Pulse Oximetry 94 L 98 96 10/30/18 20:00 10/30/18 21:13 10/31/18 00:00 Temperature 98.8 F 98.4 F Pulse Rate 90 93 H Respiratory Rate 20 20 Blood Pressure 127/74 123/75 Pulse Oximetry 93 L 96 98 10/31/18 04:00 Temperature 98.8 F Pulse Rate 87 Respiratory Rate 18 Blood Pressure 131/77 Pulse Oximetry 96 Intake & Output 10/30/18 10/31/18 10/31/18 18:59 06:59 18:59 Intake Total 1480 / 1480 810 / 810 Output Total 600 / 600 225 / 225 Balance 880 / 880 585 / 585 Weight 119.5 kg Intake: IV 1000 / 1000 330 / 330 LR 1000 mL Inj 1,000 ML @ 63 1000 / 1000 330 / 330 mls/hr IV.CONT .[id number] [facility] Rx# :[id number] Oral 480 / 480 480 / 480 Output: Urine 600 / 600 225 / 225 Other: # Bowel Movements 0 0 Result Diagrams: 10/30/18 03:45 10/30/18 03:45 Objective Remarks: GENERAL: This is a well-nourished, well-developed patient, alert awake SKIN: No rashes, ecchymoses or lesions. Cool and dry. HEAD: Atraumatic. Normocephalic. Left facial droop which is chronic EYES: Pupils equal round and reactive. No scleral icterus. NECK: Trachea midline. Left lower neck neck incision CDI, Dermabond in place CARDIOVASCULAR: Underlying atrial fibrillation with slow ventricular rate. No bradycardia RESPIRATORY: Clear to auscultation. No wheezes or crackles GASTROINTESTINAL: Abdomen soft, non-tender, nondistended. No guarding. MUSCULOSKELETAL: Peripheral pulses palpable. No calf tenderness. No groin hematoma at the puncture sites BACK: Lumbar drain removed NEUROLOGICAL: Alert awake oriented, left facial drop is chronic from previous CVA. Able to move extremities follows commands. No new focal deficits Assessment and Plan - Assessment and Plan Plan: ASSESSMENT TEVAR and Left carotid-subclavian bypass Previous TEVAR developed proximal and distal endoleak SCI prophylaxis-completed Symptomatic bradycardia-resolved History of AAA repair History of CVA in the past History of polymyalgia rheumatica Chronic atrial fibrillation Dyslipidemia Obesity PLAN: NEURO: -Close neuro monitoring no focal deficits at this time -Lumbar drain -removed 10/30/2018 -Fentanyl for pain control RESP: -DuoNeb every 2 hours as needed -Check chest x-ray due to hypoxia CV: -Maintenance LR per vascular surgery-will discontinue today -Chronic atrial fibrillation with intermittent bradycardia -Consult to patient's manager imaging Dr. Slaughter-no pacemaker at this time -Off dopamine -Normal troponin lactic acid -Resumed aspirin, continue Lipitor -Resume anticoagulation when cleared by Dr. Ross, previously on Coumadin GI: -Tolerating p.o. diet : -Monitor renal function closely. Ordonez catheter for strict intake output ID: -Perioperative antibiotics per Dr. Ross HEME: -Monitor CBC, coags ENDO: -Electrolyte replacement per protocol PROPH: -SQ Heparin/famotidine Level 2 Okay to transfer out of ICU from critical care standpoint
--- NOTE | 2018-10-31 07:48 | P.PNVS ---
Subjective Post Op Day #: 3 Procedure: L C-SC, TEVAR Subjective/Hospital Course: spinal drain out neuro intact sitting on edge of bed off DA mary grace po Objective Vital Signs / I&O: Vital Signs 10/30/18 08:00 10/30/18 11:00 10/30/18 12:00 Temperature 98.7 F 99.0 F Pulse Rate 87 95 H 81 Respiratory Rate 20 Blood Pressure 130/76 118/69 Pulse Oximetry 94 L 95 94 L 10/30/18 15:00 10/30/18 16:00 10/30/18 20:00 Temperature 98.6 F 98.8 F Pulse Rate 95 H 85 90 Respiratory Rate 16 20 Blood Pressure 122/63 127/74 Pulse Oximetry 98 96 93 L 10/30/18 21:13 10/31/18 00:00 10/31/18 04:00 Temperature 98.4 F 98.8 F Pulse Rate 93 H 87 Respiratory Rate 20 18 Blood Pressure 123/75 131/77 Pulse Oximetry 96 98 96 10/31/18 07:00 Temperature Pulse Rate 74 Respiratory Rate Blood Pressure Pulse Oximetry Intake & Output 10/30/18 10/31/18 10/31/18 18:59 06:59 18:59 Intake Total 1480 / 1480 810 / 810 Output Total 600 / 600 225 / 225 Balance 880 / 880 585 / 585 Weight 119.5 kg Intake: IV 1000 / 1000 330 / 330 LR 1000 mL Inj 1,000 ML @ 63 1000 / 1000 330 / 330 mls/hr IV.CONT .[id number] [facility] Rx# :[id number] Oral 480 / 480 480 / 480 Output: Urine 600 / 600 225 / 225 Other: # Bowel Movements 0 0 Exam: neuro intact palp pulses L neck incision ok Laboratory Results - last 24 hr 10/28/18 11:40 MTS Gel Crossmatch See Detail Assessment and Plan - Assessment (1) Thoracic aortic aneurysm Code(s): I71.2 - Thoracic aortic aneurysm, without rupture Status: Acute - Plan POD#3 s/p L C-SC/TEVAR 1. looks great, off pressors, spinal drain out, Ordonez out 2. Transfer to floor today 3. Aggressive PT Discharge Planning: CPCU today home Sat/Sun if cleared by PT
--- NOTE | 2018-10-31 09:10 | XR ---
EXAM DATE: 10/31/2018 8:32 AM EST AGE/SEX: 77 years / Male INDICATIONS: Shortness of breath. CLINICAL DATA: This is the patient's initial encounter. Patient reports that signs and symptoms have been present for 1 day and indicates a pain score of 0/10. MEDICAL/SURGICAL HISTORY: . thoracic aneurysm. . thoracic aneurysm repair. [place] [facility] [place]. . FINDINGS: Small left pleural effusion is noted. Left basilar patchiness is noted consistent with atelectasis an d/or mild infiltrate. The heart is enlarged. The lungs are clear. Stent graft is noted within the aor tic arch and descending thoracic aorta. Median sternotomy wires are noted status post cardiac surgery . Right internal jugular central line has its tip in the superior vena cava. No pneumothorax is noted . CONCLUSION: 1. Left basilar patchiness consistent with atelectasis and/or mild infiltrate. 2. Cardiomegaly. 3. Small left pleural effusion. Electronically signed by: Pato Guillory MD Board Certified Radiologist 10/31/2018 9:09 AM EST
[2018-10-31] MEDS: Folic Acid 1 MG Tablet PO SCH (09:46)
[2018-10-31] MEDS: Ferrous Sulfate 325 MG Tablet PO SCH (09:46)
[2018-10-31] MEDS: Famotidine 20 MG Tablet PO SCH ×2 (09:46→21:02)
[2018-10-31] MEDS: Senna/Docusate Sodium 8.6/50 MG Tablet PO SCH ×2 (09:47→21:11)
--- NOTE | 2018-10-31 13:25 | P.PNCA ---
Subjective Interval history: Pt doing well, no cardiac complaints. Ambulated with therapy, tolerated well. No longer on dopamine or narcan drip. No further bradycardia noted. Medications and Allergies Allergies Allergy/AdvReac Type Severity Reaction Status Date / Time lorazepam Allergy Severe Agitation, Verified 10/28/18 06:27 VALENTÍN AMEZCUA sulfamethoxazole Allergy Severe Nausea/Vomiting, Verified 10/28/18 06:27 DIORIENTATION trimethoprim Allergy Severe Nausea/Vomiting, Verified 10/28/18 06:27 DISORIENTATION Home Medications Medication Instructions Recorded Confirmed Type aspirin [Adult Low Dose Aspirin] 81 mg PO DAILY 10/21/18 10/28/18 History atorvastatin 20 mg PO QPM 10/21/18 10/28/18 History ferrous sulfate 324 mg PO DAILY 10/21/18 10/28/18 History folic acid 0.8 mg PO DAILY 10/21/18 10/28/18 History levothyroxine 25 mcg PO DAILY 10/21/18 10/28/18 History wihhxsnb-gpx-[place]-lycopen-lutein 1 tab PO DAILY 10/21/18 10/28/18 History [Centrum Silver Ultra Men's] pantoprazole 40 mg PO DAILY 10/21/18 10/28/18 History sennosides [senna] 2 tab PO HS 10/21/18 10/28/18 History warfarin [Coumadin] 5 mg PO DAILY 10/21/18 10/28/18 History warfarin [Coumadin] 7.5 mg PO DAILY 10/21/18 10/28/18 History Active Medications: Active Medications Al Hydroxide/Mg Hydroxide (Milk Of Magnmadison Liq) 30 ml PO Q12H PRN PRN Reason: Mild Constipation Aspirin (Aspirin Chew) 81 mg PO DAILY [facility] Last Admin: 10/31/18 09:46 Dose: 81 mg Atorvastatin Calcium (Lipitor) 20 mg PO QPM [facility] Last Admin: 10/30/18 17:24 Dose: 20 mg Bisacodyl (Dulcolax Supp) 10 mg RECTAL DAILY PRN PRN Reason: SEVERE CONSITIPATION Famotidine (Pepcid) 20 mg PO BID [facility] Last Admin: 10/31/18 09:46 Dose: 20 mg Fentanyl Citrate (Fentanyl Inj) 50 mcg IV.PUSH Q1H PRN PRN Reason: Pain Scale 5 To 10 Last Admin: 10/28/18 15:56 Dose: 50 mcg Ferrous Sulfate (Ferosul) 325 mg PO DAILY [facility] Last Admin: 10/31/18 09:46 Dose: 325 mg Folic Acid (Folic Acid) 1 mg PO DAILY [facility] Last Admin: 10/31/18 09:46 Dose: 1 mg Heparin Sodium (Porcine) (Heparin Inj) 5,000 units SQ Q8H [facility] Last Admin: 10/31/18 04:51 Dose: 5,000 units Hydromorphone HCl (Dilaudid) 2 mg PO Q4H PRN PRN Reason: PAIN SCALE 6 TO 10 Last Admin: 10/29/18 21:41 Dose: 2 mg Sodium Chloride (Ns Inj) 500 mls @ 30 mls/hr IV.SIG .Q10H [facility] Last Admin: 10/28/18 17:30 Dose: Not Given Lactated Ringer's (Lr 1000 Ml Inj) 1,000 mls @ 63 mls/hr IV.CONT .[id number] [facility] Last Admin: 10/31/18 06:39 Dose: Not Given Phenylephrine HCl 40 mg/ (Dextrose) 500 mls @ 18.75 mls/hr IV.CONT TITRATE PRN ; Protocol PRN Reason: Per Protocol Last Titration: 10/28/18 18:16 Dose: 0 mcg/min, 0 mls/hr Naloxone HCl 4 mg/ Dextrose 250 mls @ 7.37 mls/hr IV.CONT TITRATE PRN PRN Reason: Ordered RASS Last Infusion: 10/31/18 09:51 Dose: Infused Dopamine HCl/Dextrose (Dopamine 800 Mg/500 Ml Premix) 800 mg in 500 mls @ 13.32 mls/hr IV.CONT TITRATE PRN; Protocol PRN Reason: SEE LABEL COMMENTS Last Titration: 10/31/18 09:49 Dose: Infused Lactulose (Lactulose Liq) 30 ml PO DAILY PRN PRN Reason: SEVERE CONSITIPATION Levothyroxine Sodium (Synthroid) 25 mcg PO DAILY@0600 [facility] Last Admin: 10/31/18 05:51 Dose: 25 mcg Morphine Sulfate (Morphine Inj) 2 mg IV.PUSH Q1H PRN PRN Reason: BREAKTHROUGH PAIN Multivitamins (Theragran) 1 tab PO DAILY [facility] Last Admin: 10/31/18 09:46 Dose: 1 tab Ondansetron HCl (Zofran Inj) 4 mg IV.PUSH Q6H PRN PRN Reason: NAUSEA Last Admin: 10/28/18 23:47 Dose: 4 mg Oxycodone HCl (Roxicodone) 5 mg PO Q4H PRN PRN Reason: PAIN SCALE 1 TO 5 Last Admin: 10/29/18 18:45 Dose: 5 mg Senna/Docusate Sodium (Annika-Colace) 1 tab PO BID [facility] Last Admin: 10/31/18 09:47 Dose: 1 tab Sennosides (Senokot) 17.2 mg PO Q12H PRN PRN Reason: Moderate Constipation Sennosides (Senokot) 17.2 mg PO HS [facility] Last Admin: 10/30/18 21:15 Dose: 17.2 mg Terbutaline Sulfate (Brethine Inj) 1 mg SQ UNSCH PRN PRN Reason: For Extravasation Terbutaline Sulfate (Brethine Inj) 1 mg SQ ONCE PRN PRN Reason: Extravasation [facility] Warfarin Sodium (Coumadin) 7.5 mg PO DAILY [facility] Physical Exam Vital signs: Vital Signs 10/30/18 15:00 10/30/18 16:00 10/30/18 20:00 Temperature 98.6 F 98.8 F Pulse Rate 95 H 85 90 Respiratory Rate 16 20 Blood Pressure 122/63 127/74 Pulse Oximetry 98 96 93 L 10/30/18 21:13 10/31/18 00:00 10/31/18 04:00 Temperature 98.4 F 98.8 F Pulse Rate 93 H 87 Respiratory Rate 20 18 Blood Pressure 123/75 131/77 Pulse Oximetry 96 98 96 10/31/18 07:00 10/31/18 08:00 10/31/18 11:00 Temperature 98.4 F Pulse Rate 74 78 80 Respiratory Rate 24 Blood Pressure 130/74 Pulse Oximetry 94 L 94 L 96 10/31/18 11:41 10/31/18 12:00 Temperature 98.1 F Pulse Rate 87 Respiratory Rate 20 Blood Pressure 145/77 H Pulse Oximetry 94 L 94 L Intake & Output 10/30/18 10/31/18 10/31/18 18:59 06:59 18:59 Intake Total 1480 / 1480 810 / 810 538 / 538 Output Total 600 / 600 225 / 225 Balance 880 / 880 585 / 585 538 / 538 Weight 119.5 kg Intake: IV 1000 / 1000 330 / 330 538 / 538 DOPamine 800 MG/500 ML Premix 370 / 370 800 mg In 500 ml @ 3 MCG/KG/MIN 13.32 mls/hr IV.CONT TITRATE PRN Rx#:[id number] LR 1000 mL Inj 1,000 ML @ 63 1000 / 1000 330 / 330 mls/hr IV.CONT .[id number] [facility] Rx# :[id number] Narcan Inj 4 MG In D5W Inj 246 168 / 168 ML @ 0.118 MG/HR 7.37 mls/hr IV .CONT TITRATE PRN Rx#:[id number] Oral 480 / 480 480 / 480 Output: Urine 600 / 600 225 / 225 Other: # Bowel Movements 0 0 Narrative: GENERAL: This is a well-nourished, well-developed patient, alert awake SKIN: No rashes, ecchymoses or lesions. Cool and dry. HEAD: Atraumatic. Normocephalic. Left facial droop which is chronic EYES: Pupils equal round and reactive. No scleral icterus. NECK: Trachea midline. Left lower neck neck incision CDI, Dermabond in place CARDIOVASCULAR: Underlying atrial fibrillation with slow ventricular rate. No bradycardia RESPIRATORY: Clear to auscultation. No wheezes or crackles GASTROINTESTINAL: Abdomen soft, non-tender, nondistended. No guarding. MUSCULOSKELETAL: Peripheral pulses palpable. No calf tenderness. No groin hematoma at the puncture sites BACK: Lumbar drain removed NEUROLOGICAL: Alert awake oriented, left facial drop is chronic from previous CVA. Able to move extremities follows commands. No new focal deficits - Constitutional no acute distress, obese, cooperative - Routine HEENT Exam Head: Present: normocephalic Eye: Present: EOMI, PERRL, normal accommodation ENT: Present: mucous membranes moist - Routine Neck Exam Present: supple - Urinary Catheter Management Indwelling Temp Sensing Catheter Cath placed during this visit: yes, but has since been removed by the nurse Reason for continuing: Not indwelling catheter Insertion date: 10/28/18 Insertion time: 08:45 Removal date: 10/30/18 Removal time: 14:45 Results 10/30/18 03:45 10/30/18 03:45 CBC 10/30/18 Range/Units 03:45 WBC 10.3 (4.0-11.0) th/mm3 RBC 3.70 L (4.50-5.90) mil/mm3 Hgb 9.8 L (13.0-17.0) gm/dL Hct 29.8 L (39.0-51.0) % Plt Count 155 (150-450) th/mm3 Comprehensive Metabolic Panel 10/30/18 Range/Units 03:45 Sodium 140 (136-145) meq/L Potassium 4.1 (3.5-5.1) meq/L Chloride 105 (98-107) meq/L Carbon Dioxide 30.4 (21.0-32.0) meq/L BUN 17 (7-18) mg/dL Creatinine 0.82 (0.60-1.30) mg/dL Calcium 8.1 L (8.5-10.1) mg/dL Intake and Output 10/30/18 10/31/18 10/31/18 22:59 06:59 14:59 Intake Total 480 / 480 810 / 810 538 / 538 Output Total 600 / 600 225 / 225 Balance -120 / -120 585 / 585 538 / 538 Intake: IV 330 / 330 538 / 538 DOPamine 800 MG/500 ML Premix 370 / 370 800 mg In 500 ml @ 3 MCG/KG/MIN 13.32 mls/hr IV.CONT TITRATE PRN Rx#:[id number] LR 1000 mL Inj 1,000 ML @ 63 330 / 330 mls/hr IV.CONT .[id number] [facility] Rx# :[id number] Narcan Inj 4 MG In D5W Inj 246 168 / 168 ML @ 0.118 MG/HR 7.37 mls/hr IV .CONT TITRATE PRN Rx#:[id number] Oral 480 / 480 480 / 480 Output: Urine 600 / 600 225 / 225 Other: # Bowel Movements 0 0 Weight 119.5 kg - Imaging and Cardiology Imaging: Impressions Chest X-Ray 10/31/18 00:00 CONCLUSION: 1. Left basilar patchiness consistent with atelectasis and/or mild infiltrate. 2. Cardiomegaly. 3. Small left pleural effusion. Assessment and Plan - Plan Assessment TEVAR and left carotid subclavian bypass Symptomatic bradycardia AAA History of CVA 2012 Chronic atrial fibrillation Hyperlipidemia Last echocardiogram was completed in office December 2017 showed EF of 54, aortic valve replacement, AV max peak gradient of 21, aortic valve area 1.7 cm, mitral valve replacement, mitral valve area 1.4 cm, moderate TR, biatrial enlargement, right ventricular enlargement, dilated IVC, LVH Plan -Recovering well, lumbar drain removed. -Atrial fibrillation with intermittent bradycardia. No further episodes of bradycardia. -No longer on dopamine or narcan drip, doing well. -Aspirin resumed, continue Lipitor -Warfarin resumed. The patient was seen and evaluated by Dr. Slaughter who participated in care management and decision making The exam, history, and the medical decision-making described in the above note were completed with the assistance of the mid-level provider. I reviewed and agree with the findings presented. I attest that I had a [id number] encounter with the patient on the same day, and personally performed and documented my assessment and findings in the medical record. Overall doing better no need for pacer will see PRN. Code Status: Full Code Discussed Condition With: Dr. Slaughter, RN
[2018-10-31 13:33] LABS: INR 1.3 Ratio; Prothrombin Time 12.7 sec (9.8-11.6)
[2018-10-31] MEDS ORDERED: Sodium Chloride 0.9% 2 ML Flush PRN IV.FLUSH (20:16)
[2018-10-31] MEDS ORDERED: Acetaminophen 500 MG Tablet PO PRN (20:30)
[2018-10-31] MEDS: Sodium Chloride 0.9% 2 ML Flush BID IV.FLUSH SCH (21:11)
[2018-11-01] MEDS: Ferrous Sulfate 325 MG Tablet PO SCH (08:46)
[2018-11-01] MEDS: Famotidine 20 MG Tablet PO SCH ×2 (08:46→20:12)
[2018-11-01] MEDS: Senna/Docusate Sodium 8.6/50 MG Tablet PO SCH ×2 (08:46→20:12)
[2018-11-01] MEDS: Folic Acid 1 MG Tablet PO SCH (08:46)
[2018-11-01] MEDS: Sodium Chloride 0.9% 2 ML Flush BID IV.FLUSH SCH ×2 (08:46→20:12)
[2018-11-01] MEDS: Heparin - SQ 10,000 UNITS/ML Vial SQ SCH ×3 (08:53→20:11)
--- NOTE | 2018-11-01 09:42 | P.PNCC ---
Subjective Subjective Remarks/Hospital Course: 77-year-old male with past medical history significant for atrial fibrillation, dyslipidemia, previous AAA repair, TEVAR 6 years ago, history of stroke, obesity, history of temporal arteritis and polymyalgia who underwent Left carotid-subclavian bypass and TEVAR including L SCA coverage with successful relining from left common carotid artery to celiac. Had previous TEVAR 6 years ago, developed proximal and distal I endoleak. Lumbar drain was placed for spinal cord injury prophylaxis. Post op patient was moved to the CVICU where I evaluated him. He is somnolent from procedural sedation. However wakes up moves all extremities. Currently receiving Carlitos-Synephrine at 40 mcg/min to keep map above 100. Lumbar drain in plac. Patient is also on Narcan infusion for SCI prophylaxis. On my evaluation patient intermittently bradycardic. Underlying rhythm is A. fib. Will change pressors to dopamine to target heart rate >60, map more than 100. Discussed with Dr. Ross. SUBJ 10/29: Patient remains neuro intact. Currently on dopamine to maintain map lumbar drain in place. Neurologically intact. Intermittently bradycardic to 30s with nausea/vomiting. Cardiology Dr. Slaughter consult requested 10/30: Lumbar drain is clamped patient remains neurologically intact. No further bradycardia. Currently dopamine at 4 mcg/kg/min. Lumbar drain to be removed today 10/31: Doing well lumbar drain removed yesterday. No neurological deficits. Urine output is adequate. Patient has been noticed to have some desaturation when sleeping. He has sleep apnea, advised to get the home CPAP machine 11/01: No acute events reported overnight sitting up in the side of bed. Awaiting transfer to CPCU. No focal neurological deficits. Remains off all drips Objective Vital Signs / I&O: Vital Signs 10/31/18 11:00 10/31/18 11:41 10/31/18 12:00 Temperature 98.1 F Pulse Rate 80 87 Respiratory Rate 20 Blood Pressure 145/77 H Pulse Oximetry 96 94 L 94 L 10/31/18 15:00 10/31/18 16:00 10/31/18 19:00 Temperature 97.7 F Pulse Rate 84 84 86 Respiratory Rate 22 Blood Pressure 139/75 Pulse Oximetry 96 10/31/18 20:00 10/31/18 20:30 10/31/18 23:00 Temperature 97.6 F Pulse Rate 86 83 Respiratory Rate 22 Blood Pressure 139/75 Pulse Oximetry 93 L 96 98 11/01/18 00:00 11/01/18 03:00 11/01/18 04:00 Temperature 98.2 F Pulse Rate 83 82 82 Respiratory Rate 18 20 20 Blood Pressure 137/76 110/47 L Pulse Oximetry 98 98 97 11/01/18 07:08 11/01/18 07:09 Temperature Pulse Rate Respiratory Rate Blood Pressure Pulse Oximetry 97 97 Intake & Output 10/31/18 11/01/18 11/01/18 18:59 06:59 18:59 Intake Total 1498 / 1498 480 / 480 Output Total 625 / 625 850 / 850 Balance 873 / 873 -370 / -370 Weight 120.5 kg Intake: IV 538 / 538 DOPamine 800 MG/500 ML Premix 370 / 370 800 mg In 500 ml @ 3 MCG/KG/MIN 13.32 mls/hr IV.CONT TITRATE PRN Rx#:[id number] Narcan Inj 4 MG In D5W Inj 246 168 / 168 ML @ 0.118 MG/HR 7.37 mls/hr IV .CONT TITRATE PRN Rx#:[id number] Oral 960 / 960 480 / 480 Output: Urine 625 / 625 850 / 850 Other: # Voids 1 6 Date of Last Bowel Movement 10/31/18 # Bowel Movements 1 Result Diagrams: 10/30/18 03:45 10/30/18 03:45 Objective Remarks: GENERAL: This is a well-nourished, well-developed patient, alert awake SKIN: No rashes, ecchymoses or lesions. Cool and dry. HEAD: Atraumatic. Normocephalic. Left facial droop which is chronic EYES: Pupils equal round and reactive. No scleral icterus. NECK: Trachea midline. Left lower neck neck incision CDI, Dermabond in place, with surrounding ecchymosis CARDIOVASCULAR: Underlying atrial fibrillation. No bradycardia RESPIRATORY: Clear to auscultation. No wheezes or crackles GASTROINTESTINAL: Abdomen soft, non-tender, nondistended. No guarding. MUSCULOSKELETAL: Peripheral pulses palpable. No calf tenderness. No groin hematoma at the puncture sites BACK: Lumbar drain removed NEUROLOGICAL: Alert awake oriented, left facial drop is chronic from previous CVA. Able to move extremities follows commands. No new focal deficits Assessment and Plan - Assessment and Plan Plan: ASSESSMENT TEVAR and Left carotid-subclavian bypass Previous TEVAR developed proximal and distal endoleak SCI prophylaxis-completed Symptomatic bradycardia-resolved History of AAA repair History of CVA in the past History of polymyalgia rheumatica Chronic atrial fibrillation Dyslipidemia Obesity PLAN: NEURO: -Close neuro monitoring no focal deficits at this time -Lumbar drain -removed 10/30/2018 -Fentanyl for pain control RESP: -DuoNeb every 2 hours as needed CV: -Maintenance LR per vascular surgery-discontinued -Chronic atrial fibrillation with intermittent bradycardia -Consult to patient's aviation medicine specialist Dr. Slaughter-no pacemaker at this time -Resumed aspirin, continue Lipitor -Resume anticoagulation when cleared by Dr. Ross, previously on Coumadin GI: -Tolerating p.o. diet : -Monitor renal function closely. ID: -Perioperative antibiotics per Dr. Ross HEME: -Monitor CBC, coags ENDO: -Electrolyte replacement per protocol PROPH: -SQ Heparin/famotidine Level 2 Okay to transfer out of ICU from critical care standpoint. At this time awaiting CPCU bed
--- NOTE | 2018-11-01 10:22 | P.PNVS ---
Subjective Post Op Day #: 4 Procedure: L C-SC, TEVAR Subjective/Hospital Course: walked with staff auditor no neuro deficits mary grace po pain controlled Objective Vital Signs / I&O: Vital Signs 10/31/18 11:00 10/31/18 11:41 10/31/18 12:00 Temperature 98.1 F Pulse Rate 80 87 Respiratory Rate 20 Blood Pressure 145/77 H Pulse Oximetry 96 94 L 94 L 10/31/18 15:00 10/31/18 16:00 10/31/18 19:00 Temperature 97.7 F Pulse Rate 84 84 86 Respiratory Rate 22 Blood Pressure 139/75 Pulse Oximetry 96 10/31/18 20:00 10/31/18 20:30 10/31/18 23:00 Temperature 97.6 F Pulse Rate 86 83 Respiratory Rate 22 Blood Pressure 139/75 Pulse Oximetry 93 L 96 98 11/01/18 00:00 11/01/18 03:00 11/01/18 04:00 Temperature 98.2 F Pulse Rate 83 82 82 Respiratory Rate 18 20 20 Blood Pressure 137/76 110/47 L Pulse Oximetry 98 98 97 11/01/18 07:08 11/01/18 07:09 Temperature Pulse Rate Respiratory Rate Blood Pressure Pulse Oximetry 97 97 Intake & Output 10/31/18 11/01/18 11/01/18 18:59 06:59 18:59 Intake Total 1498 / 1498 480 / 480 Output Total 625 / 625 850 / 850 Balance 873 / 873 -370 / -370 Weight 120.5 kg Intake: IV 538 / 538 DOPamine 800 MG/500 ML Premix 370 / 370 800 mg In 500 ml @ 3 MCG/KG/MIN 13.32 mls/hr IV.CONT TITRATE PRN Rx#:[id number] Narcan Inj 4 MG In D5W Inj 246 168 / 168 ML @ 0.118 MG/HR 7.37 mls/hr IV .CONT TITRATE PRN Rx#:[id number] Oral 960 / 960 480 / 480 Output: Urine 625 / 625 850 / 850 Other: # Voids 1 6 Date of Last Bowel Movement 10/31/18 # Bowel Movements 1 Exam: L neck incision ecchymotic palp pulses neuro intact Laboratory Results - last 24 hr 10/31/18 13:15 PT 12.7 H INR 1.3 Assessment and Plan - Assessment (1) Thoracic aortic aneurysm Code(s): I71.2 - Thoracic aortic aneurysm, without rupture Status: Acute - Plan POD#4 s/p L C-SC/TEVAR 1. transfer to CPCU anytime 2. Restarted home coumadin yesterday - INR tomorrow morning 3. normalize 4. working with PT - appreciate their assistance; they recommend home health PT Discharge Planning: potentially Saturday (POD#5) if home PT set up case management consulted DOS
[2018-11-02] MEDS: Heparin - SQ 10,000 UNITS/ML Vial SQ SCH ×3 (04:51→20:27)
[2018-11-02 05:43] LABS: INR 1.2 Ratio; Prothrombin Time 12.4 sec (9.8-11.6)
--- NOTE | 2018-11-02 07:52 | P.PNVS ---
Subjective Post Op Day #: 5 Procedure: L C-SC, TEVAR Subjective/Hospital Course: looks good ambulating some, still working with PT on O2, no SOB no leg pain Objective Vital Signs / I&O: Vital Signs 11/01/18 08:00 11/01/18 11:00 11/01/18 12:00 Temperature 97.6 F 97.6 F Pulse Rate 72 70 70 Respiratory Rate 18 16 Blood Pressure 127/68 110/62 Pulse Oximetry 94 L 92 L 11/01/18 15:00 11/01/18 16:00 11/01/18 19:00 Temperature 98.2 F Pulse Rate 74 92 H 85 Respiratory Rate Blood Pressure 140/73 Pulse Oximetry 96 11/01/18 20:00 11/01/18 23:00 11/01/18 23:29 Temperature 98.8 F 98.4 F Pulse Rate 82 88 85 Respiratory Rate Blood Pressure 132/72 139/67 Pulse Oximetry 94 L 96 11/02/18 03:00 11/02/18 03:05 Temperature 98.2 F Pulse Rate 90 73 Respiratory Rate Blood Pressure 140/66 Pulse Oximetry 97 Intake & Output 11/01/18 11/02/18 11/02/18 18:59 06:59 18:59 Intake Total 720 / 720 480 / 480 Output Total 750 / 750 450 / 450 Balance -30 / -30 30 / 30 Weight 120 kg Intake: Oral 720 / 720 480 / 480 Output: Urine 750 / 750 450 / 450 Other: Date of Last Bowel Movement 11/01/18 11/01/18 Exam: alert, sitting on edge of bed, no distress L neck incision ecchymotic palpable pulses neuro intact Laboratory Results - last 24 hr 11/02/18 04:45 PT 12.4 H INR 1.2 Assessment and Plan - Assessment (1) Thoracic aortic aneurysm Code(s): I71.2 - Thoracic aortic aneurysm, without rupture Status: Acute - Plan POD#5 s/p L C-SC/TEVAR 1. Restarted home coumadin Saturday at home dose; INR daily 2. normalize 3. working with PT - appreciate their assistance; they recommend home health PT Discharge Planning: Home Saturday 3/4 (POD#6) F/U 1m with [facility] C/A/P
[2018-11-02] MEDS: Sodium Chloride 0.9% 2 ML Flush BID IV.FLUSH SCH ×2 (09:05→20:27)
[2018-11-02] MEDS: Famotidine 20 MG Tablet PO SCH ×2 (09:05→20:27)
[2018-11-02] MEDS: Ferrous Sulfate 325 MG Tablet PO SCH (09:05)
[2018-11-02] MEDS: Senna/Docusate Sodium 8.6/50 MG Tablet PO SCH ×2 (09:06→20:27)
[2018-11-02] MEDS: Folic Acid 1 MG Tablet PO SCH (10:34)
[2018-11-02 10:43] VITALS: RESP 18
--- NOTE | 2018-11-02 20:30 | P.DCO ---
- Diagnosis (1) Thoracic aortic aneurysm Status: Acute - Physical Therapy Order: Evaluate and treat, Improve ambulation, Strength and gait training - Occupational Therapy Order: Evaluate and treat, Improve ADL - Case Management Consult Case Management Consult-Home Health: Yes - Certification I have seen patient Wes León on 11/02/18. My clinical findings support the need for the requested home health care services because: Limited mobility due to disease progression I certify that my clinical findings support that this patient is homebound because: Pt is medically cleared for discharge and will benefit from out patient physical and occupational therapy Post-op weakness
[2018-11-03] MEDS: Heparin - SQ 10,000 UNITS/ML Vial SQ SCH (04:40)
[2018-11-03 05:39] LABS: INR 1.3 Ratio; Prothrombin Time 13.3 sec (9.8-11.6)
--- NOTE | 2018-11-03 06:43 | P.PNVS ---
Subjective Post Op Day #: 6 Procedure: L C-SC, TEVAR Subjective/Hospital Course: looks good PT rec home PT + BM voiding mary grace po pain controlled Objective Vital Signs / I&O: Vital Signs 11/02/18 07:00 11/02/18 08:00 11/02/18 12:00 Temperature 98.6 F 98.2 F Pulse Rate 60 74 78 Respiratory Rate 18 18 Blood Pressure 159/76 H 169/80 H Pulse Oximetry 100 98 11/02/18 15:00 11/02/18 16:00 11/02/18 19:00 Temperature 98.2 F Pulse Rate 64 70 78 Respiratory Rate 18 Blood Pressure 145/65 H Pulse Oximetry 98 11/02/18 19:53 11/02/18 21:24 11/02/18 23:00 Temperature 98.2 F Pulse Rate 73 83 Respiratory Rate Blood Pressure 140/66 Pulse Oximetry 97 94 L 11/03/18 00:00 11/03/18 03:00 11/03/18 03:51 Temperature 98 F 98.2 F Pulse Rate 73 83 62 Respiratory Rate Blood Pressure 138/63 147/70 H Pulse Oximetry 99 99 Intake & Output 11/02/18 11/02/18 11/03/18 06:59 18:59 06:59 Intake Total 480 / 480 680 / 680 480 / 480 Output Total 450 / 450 475 / 475 Balance 30 / 30 680 / 680 5 / 5 Weight 120 kg Intake: Oral 480 / 480 680 / 680 480 / 480 Output: Urine 450 / 450 475 / 475 Other: # Voids 5 Date of Last Bowel Movement 11/01/18 11/02/18 11/02/18 # Bowel Movements 1 1 Exam: sitting in chair, no distress L neck incision ecchymotic but intact palpable pulses Laboratory Results - last 24 hr 11/03/18 04:37 PT 13.3 H INR 1.3 Assessment and Plan - Assessment (1) Thoracic aortic aneurysm Code(s): I71.2 - Thoracic aortic aneurysm, without rupture Status: Acute - Plan POD#6 s/p L C-SC/TEVAR 1. on all home meds including coumadin 2. ambulating; appreciate PT recs - home PT ordered Discharge Planning: today F/U 1m with CTA C/A/P
--- NOTE | 2018-11-03 06:45 | P.DS ---
Discharge Summary - Admission Date 10/28/18 05:19 - Admission Diagnosis (1) Thoracic aortic aneurysm - Discharge Diagnosis (1) Thoracic aortic aneurysm Status: Acute - Summary Brief History from admission: 77 yo male with prior TEVAR for TAA who had proximal and distal thoracic aortic degeneration. Procedure: L C-SC, TEVAR Significant Findings: Abnormal Lab Results 11/03/18 04:37 PT 13.3 H INR 1.3 Hospital Course: The patient underwent L C-SC, proximal and distal TEVAR extensions with distal active fixation. Post-operatively he did well and remained neurologically intact. His spinal drain was removed 48h post-operatively. He was transferred to the floor and recovered nicely. Ready for discharge with home PT. - Discharge Instructions Any questions or concerns: Call [facility] at [facility] [phone] Discharge Plan - Discharge Disposition Patient Disposition: W/[facility] - Physicians Team Primary Care Provider: Art Luna Attending Provider: Pato Ross Other Providers: Jamal Hathaway MD ; Johan Slaughter MD - Rxs /Orders / Referrals /Forms Prescriptions: No Action aspirin [Adult Low Dose Aspirin] 81 mg Tablet,Delayed Release (Dr/Ec) 81 mg PO DAILY atorvastatin 20 mg Tablet 20 mg PO QPM ferrous sulfate 324 mg (65 mg iron) Tablet,Delayed Release (Dr/Ec) 324 mg PO DAILY folic acid 1 mg Tablet 0.8 mg PO DAILY levothyroxine 25 mcg Tablet 25 mcg PO DAILY twfbzcaz-mtw-VU-lycopen-lutein [Centrum Silver Ultra Men's] 300-600-300 mcg Tablet 1 tab PO DAILY pantoprazole 40 mg Tablet,Delayed Release (Dr/Ec) 40 mg PO DAILY sennosides [senna] 8.6 mg Tablet 2 tab PO HS warfarin [Coumadin] 5 mg Tablet 5 mg PO DAILY warfarin [Coumadin] 7.5 mg Tablet 7.5 mg PO DAILY Referrals: [facility], [Non-Staff] - See Instructions Art Luna MD [Primary Care Provider] - See Instructions Pato Ross MD [Physician] - See Instructions (Follow up in 4w w/ a surveillance CTA C/A/P Please obtain your CTA prior to your post operative follow up visit ) - Post Discharge Care Plan Care Plan Goals: Discharge Care Plan Goals After Vascular Surgery Contact: Please call [phone] if you have any problems or have questions regarding your hospitalization. Directions to Meet Your Goals: 1. Diet: * You may resume a regular diet as you were eating at home before your admission. 2. Activity: * Increase your activity level gradually. * Keep surgical extremities elevated when at rest. This will help limit the swelling, bruising and discomfort normally present after surgery. * Walking is a good form of light exercise. Go for a walk at least 3 times per day. * No heavy lifting (lifting over 10 pounds) for at least 4 weeks from surgery. * Check with your surgeon to ensure when you are cleared for heavy lifting and full-intensity exercising. * Your strength will gradually improve. * No driving or operating motorized vehicles while on prescription pain medications. * No swimming until wounds fully healed. * Return to work when cleared by MD/KARTHIKEYAN/RADHA. 3. Bathing: Shower daily. * Gently let soap and water run over your incision and pat dry. Do not scrub the incision/wound. * Don't soak in a bath or submerge your incision in water until your incision is healed and evaluated by your physician at follow-up (usually two weeks). 4. Wound Care: INCISION SITE CARE INSTRUCTIONS: * You may leave your incision open to air. * Keep your incision clean and dry, unless showering. See above. * Moisture near the incision will cause the wound to open. * No lotions, creams, ointments, or powders on incisions until they are well- healed. * If you have glue over the incision(s), allow it to fall off naturally in 1-3 weeks * If present, lo/sutures will be removed 2-3 weeks after surgery during your follow-up clinic visit. * If present, change dressing/bandage when soaked/soiled as needed. * Observe wound daily, checking for signs and symptoms of infection including: foul odor, drainage from the incision, increased redness, increased pain at incision, or increased swelling. 5. Pain Control: Expect post-operative pain for 1-4 weeks after surgery. Your pain will improve gradually. * You may have been provided with a prescription for pain medication. Please take as directed, and be aware of side effects such as drowsiness, constipation and mild stomach discomfort. Pain pills on an empty stomach can cause nausea , so eat a small amount of food, such as crackers, when taking these pills. * Take ugjg-rma-gdmubwp stool softeners (Colace or Senna) with your prescribed pain medication. * Acetaminophen (500mg every 6 hours) or Ibuprofen (400mg every 6 hours) may be used in conjunction with narcotics to relieve pain. DO NOT take more than 4 grams (4000mg) of Tylenol in one day, as this can harm your liver. DO NOT take ibuprofen IF: you have an allergy to non-steroidal anti-inflammatory medications, you are taking Coumadin, you have been told you have kidney problems, or you have a history of gastrointestinal bleeding or ulcers. DO NOT take more than 3.2 grams (3200mg) of ibuprofen in one day. * You may also find relief from using heat packs or pads or ice packs. 6. Bowel Regimen for Constipation: * People who undergo surgery are likely to develop post-operative constipation. Exposure to narcotics and changes in diet, fluid intake, and physical activity are known contributors to constipation. We recommend routine stool softeners and/ or laxatives after surgery for most patients. Start by taking one medication. You can increase as directed to relieve constipation. Stop taking these medications if you develop diarrhea. These medications are available over-the- counter and do not require a prescription: * Colace is a stool softener. We recommend starting at 100mg orally twice per day as needed for soft stools and increase to a maximum of 200mg twice daily as needed. * Senna is a laxative that works by keeping water in the intestine to help stool move along the intestinal tract. Take 1 tablet daily as needed for soft stool and increase to a maximum of 2 tablets twice daily as needed. Take Senna with two full glasses of water each time. * Miralax, Dulcolax and Milk of Magnesia are other vwau-ybc-foyxqez laxatives that may be used as needed for post-operative constipation. * Drink 6-8 glasses of water per day. * Consume 15-30g of fiber per day: * Metamucil powder, 1-2 tablespoons 1-2 times/day OR Benefiber powder, 2 tablespoons 4 times/day. * Avoid straining. 7. Follow-Up: Do Not miss your follow-up appointment. Keep up with all your appointments and yearly check ups If you have any of the following symptoms please call [phone] immediately: Excessive swelling of the affected extremity Sudden onset of severe or unusual pain in the affected extremity Pain that gets worse or is not relieved by medication Warmth, redness, or swelling in the skin around the wound Foul drainage from incision Extensive bruising or discoloration Wound that opens up or pulls apart Fever above 101.5F or shaking chills Nausea or vomiting Severe diarrhea or severe constipation Dizziness or fainting Chest pain, shortness of breath, or increased work of breathing Weight gain >10 lbs over 3-4 days Inability to urinate for more than 6 hours Cloudy or foul smelling urine Urge to urinate more often than usual Symptoms to Report to Your Doctor: Temperature 101F or higher Pain uncontrolled by medication Drainage or foul odor from incision Extensive bruising or discoloration Chest pain Shortness of breath Nausea, vomiting or dizziness Call 911: Call 911 right away if you have: Sudden onset of chest pain that is not relieved by medications Shortness of breath
[2018-11-03] MEDS: Ferrous Sulfate 325 MG Tablet PO SCH (08:51)
[2018-11-03] MEDS: Folic Acid 1 MG Tablet PO SCH (08:52)
[2018-11-03] MEDS: Senna/Docusate Sodium 8.6/50 MG Tablet PO SCH (08:52)
[2018-11-03] MEDS: Sodium Chloride 0.9% 2 ML Flush BID IV.FLUSH SCH (08:52)
[2018-11-03] MEDS: Famotidine 20 MG Tablet PO SCH (08:52)
[2018-11-03 10:13] VITALS: BP 142/69; PULSE 84; TEMP 97.9
[2018-11-03 10:27] VITALS: O2SAT 94
== END 2018-11-03 11:05 | disposition home health service (06) | DRG 221 ==
LOC: HSDI 10-28 05:19 → HCVI 10-28 14:33 → HCPC 11-01 20:33
PROVIDERS: ADMIT Surgery; ATTEND Surgery
PROC: RPANETH (ICD-10-PCS; 2018-10-28 08:20)
CPT/HCPCS: 63741; 71010; 71045; 75605; 77003; 80048; 80053; 83605; 83735; 84484; 85027; 85610; 86850; 86900; 86901; 86923; 93005; 97110; 97162; 97530; 99145; 99152; 99153; A4646; C1725; C1755; C1768; C1769; J0131; J0690; J1265; J1644; J2250; J2310; J2370; J2405; J2704; J2710; J2720; J2930; J3010; J7040; J7050; J7060; J7120; Q9949; Q9967